=== PATIENT | male | born 1950 | race Caucasian/White ===

== ENCOUNTER 2017-06-06 08:49 | Emergency (ER) | payer MEDICARE ==
[~2017-06-06] VITALS: Ht 182.9 cm; Wt 77.1 kg
[~2017-06-06 08:49] MED LIST: ALBU90OI INH; CLIN300 PO; CLON.1 PO; CRUTCH3 USE; Cardizem CD 12120 MG PO; DILT120ERA PO; IBUP600 PO; LOSA25 PO; OXYACE5T PO; PRED20 PO; Prednisone20 MG PO; XARELTO20 MG PO; Zithromax250 MG PO
[2017-06-06] MEDS ORDERED: Norco 5-325 Ta1 EACH PO (10:28)
== END 2017-06-06 10:36 | disposition home or self-care (01) ==
LOC: ER 08:49
DX: M65.262 Calcific tendinitis, left lower leg (principal); F17.200 Nicotine dependence, unspecified, uncomplicated; Z79.899 Other long term (current) drug therapy
CPT/HCPCS: 29505; 73564; 99283

== ENCOUNTER 2017-07-12 11:11 | Emergency (ER) | payer MEDICARE ==
[~2017-07-12] VITALS: Ht 180.3 cm; Wt 77.1 kg
[~2017-07-12 11:11] MED LIST changes: +Norco 5-325 Ta1 EACH PO
[2017-07-12] MEDS ORDERED: LOSA50 PO (11:48)
[2017-07-12] MEDS ORDERED: HYDR-86 PO (11:51)
[2017-07-12] MEDS ORDERED: Ultram50 MG PO (12:01)
== END 2017-07-12 12:06 | disposition home or self-care (01) ==
LOC: ER 11:11
DX: M11.262 Other chondrocalcinosis, left knee (principal); M11.261 Other chondrocalcinosis, right knee; F17.210 Nicotine dependence, cigarettes, uncomplicated; Z79.899 Other long term (current) drug therapy
CPT/HCPCS: 73562-LT; 99283

== ENCOUNTER 2017-09-15 09:23 | Emergency (ER) | payer MEDICARE ==
[~2017-09-15] VITALS: Ht 182.9 cm; Wt 72.6 kg
[~2017-09-15 09:23] MED LIST changes: +HYDR-86 PO; +LOSA50 PO; +Ultram50 MG PO
[2017-09-15] MEDS ORDERED: TRAM50 PO (10:14)
== END 2017-09-15 10:19 | disposition home or self-care (01) ==
LOC: ER 09:23
DX: M25.561 Pain in right knee (principal); Z79.899 Other long term (current) drug therapy; F17.210 Nicotine dependence, cigarettes, uncomplicated
CPT/HCPCS: 73562-RT; 99283

== ENCOUNTER → 2017-09-17 | Outpatient (CLI) | payer MEDICARE ==
[~2017-09-17] MED LIST changes: +TRAM50 PO
[2017-09-17 10:36] LABS: Body Fluid Crystals NEG (NEGATIVE)
[2017-09-17 11:27] LABS: WBC Count, Synovial Fluid 9660 /mm3 (0-180)
[2017-09-17 11:52] LABS: Appearance, Synovial Fluid Hazy (Clear); Color, Synovial Fluid Yellow (None-P Yel); Lymphs, Synovial Fluid 1 % (0-15); Monocytes/Macrophages, Synovia 14 % (0-65); Neutrophils, Synovial Fluid 85 % (0-24)
[2017-09-17 12:16] LABS: RBC Count, Synovial Fluid 320 /mm3 (0-0)
[2017-09-17 12:41] LABS: BASOPHILS ABSOLUTE AUTO 0.05 K/mm3 (0.00-0.23); BASOPHILS PERCENT AUTO 1 % (0-2); EOSINOPHILS ABSOLUTE AUTO 0.09 K/mm3 (0.00-0.68); EOSINOPHILS PERCENT AUTO 1 % (0-6); Hematocrit 41.3 % (37.0-53.0); Hemoglobin 13.4 g/dL (13.5-17.5); IMMATURE GRAN ABSOLUTE AUTO 0.02 K/mm3 (0.00-0.10); IMMATURE GRAN PERCENT AUTO 0 % (0-1); LYMPHOCYTES ABSOLUTE AUTO 1.68 K/mm3 (0.84-5.20); LYMPHOCYTES PERCENT AUTO 24 % (21-46); MONOCYTES ABSOLUTE AUTO 0.64 K/mm3 (0.16-1.47); MONOCYTES PERCENT AUTO 9 % (4-13); Mean Corpuscular HGB 29.3 pg (26.0-34.0); Mean Corpuscular HGB Conc 32.4 g/dL (31.5-36.5); Mean Corpuscular Volume 90 fL (80-100); Mean Platelet Volume 9.9 fL (9.1-12.4); NEUTROPHILS ABSOLUTE AUTO 4.49 K/mm3 (1.96-9.15); NEUTROPHILS PERCENT AUTO 64 % (41-73); Platelet Count 288 K/mm3 (150-400); RDW Coefficient Variation 16.3 % (11.7-14.2); RDW Standard Deviation 53.9 fL (35.1-46.3); Red Blood Cell Count 4.58 M/mm3 (4.30-5.90); White Blood Cell Count 6.97 K/mm3 (4.00-11.30)
== END ==
LOC: LAB SHORT 09:31 → LAB 09:31
PROVIDERS: Family Medicine
DX: M25.461 Effusion, right knee (principal)
CPT/HCPCS: 36415; 85025; 85651; 86140; 89051; 89060

== ENCOUNTER 2018-05-01 09:00 | Emergency (ER) | payer MEDICARE ==
[~2018-05-01] VITALS: Ht 180.3 cm; Wt 79.4 kg
[2018-05-01] MEDS ORDERED: Percocet 5-3251 EACH PO (10:24)
== END 2018-05-01 11:00 | disposition home or self-care (01) ==
LOC: ER 09:00
DX: S46.911A Strain of unspecified muscle, fascia and tendon at shoulder and upper arm level, right arm, initial encounter (principal); S66.812A Strain of other specified muscles, fascia and tendons at wrist and hand level, left hand, initial encounter; I10 Essential (primary) hypertension; I48.91 Unspecified atrial fibrillation; F17.210 Nicotine dependence, cigarettes, uncomplicated; Z79.899 Other long term (current) drug therapy; Z79.01 Long term (current) use of anticoagulants
CPT/HCPCS: 73070; 99283-25

== ENCOUNTER 2018-05-22 08:42 | Emergency (ER) | payer MEDICARE ==
[~2018-05-22] VITALS: Ht 180.3 cm; Wt 77.1 kg
[~2018-05-22 08:42] MED LIST changes: +Percocet 5-3251 EACH PO
== END 2018-05-22 09:32 | disposition home or self-care (01) ==
LOC: ER 08:42
DX: G89.29 Other chronic pain (principal); M25.561 Pain in right knee; Z79.899 Other long term (current) drug therapy; Z79.891 Long term (current) use of opiate analgesic; I10 Essential (primary) hypertension; F17.210 Nicotine dependence, cigarettes, uncomplicated
CPT/HCPCS: 99283

== ENCOUNTER 2019-05-14 05:49 | Emergency (ER) | payer MEDICARE ==
[~2019-05-14] VITALS: Ht 180.3 cm; Wt 81.7 kg
[~2019-05-14 05:49] MED LIST changes: +AZIT250 PO; +CLONIDINE HCL0.1 MG PO; +PRED10 PO
[2019-05-14 07:39] LABS: BASOPHILS ABSOLUTE AUTO 0.05 K/mm3 (0.00-0.23); BASOPHILS PERCENT AUTO 1 % (0-2); EOSINOPHILS ABSOLUTE AUTO 0.03 K/mm3 (0.00-0.68); EOSINOPHILS PERCENT AUTO 0 % (0-6); Hematocrit 41.5 % (37.0-53.0); Hemoglobin 13.4 g/dL (13.5-17.5); IMMATURE GRAN ABSOLUTE AUTO 0.05 K/mm3 (0.00-0.10); IMMATURE GRAN PERCENT AUTO 1 % (0-1); LYMPHOCYTES ABSOLUTE AUTO 1.97 K/mm3 (0.84-5.20); LYMPHOCYTES PERCENT AUTO 18 % (21-46); MONOCYTES ABSOLUTE AUTO 1.11 K/mm3 (0.16-1.47); MONOCYTES PERCENT AUTO 10 % (4-13); Mean Corpuscular HGB 28.2 pg (26.0-34.0); Mean Corpuscular HGB Conc 32.3 g/dL (31.5-36.5); Mean Corpuscular Volume 87 fL (80-100); NEUTROPHILS ABSOLUTE AUTO 7.78 K/mm3 (1.96-9.15); NEUTROPHILS PERCENT AUTO 71 % (41-73); Platelet Count 248 K/mm3 (150-400); RDW Coefficient Variation 15.5 % (11.7-14.2); RDW Standard Deviation 49.8 fL (35.1-46.3); Red Blood Cell Count 4.75 M/mm3 (4.30-5.90); White Blood Cell Count 10.99 K/mm3 (4.00-11.30)
[2019-05-14 07:59] LABS: Alanine Aminotransfer (ALT/SGP 20 U/L (12-78); Albumin, Blood 3.2 g/dL (3.4-5.0); Albumin/Globulin Ratio 0.8 (0.8-1.8); Alk Phos 61 U/L (50-136); Anion Gap 8 mmol/L (6-16); Aspartate Aminotrans (AST/SGOT 21 U/L (12-37); Bilirubin, Total 1.1 mg/dL (0.1-1.0); Blood Urea Nitrogen 28 mg/dL (8-24); Bun/Creatinine Ratio 23.5 (12.0-20.0); CO2, Blood 23 mmol/L (21-32); Calcium, Blood 8.6 mg/dL (8.5-10.1); Chloride, Blood 104 mmol/L (98-108); Creatinine, Blood 1.19 mg/dL (0.60-1.20); Globulin, Blood 4.2 g/dL (2.2-4.0); Glomerular Filtration Rate >60 (60-); Glucose, Blood 87 mg/dL (70-99); Potassium, Blood 4.2 mmol/L (3.5-5.5); Sodium, Blood 135 mmol/L (136-145); Total Protein, Blood 7.4 g/dL (6.4-8.2); Troponin I <0.015 ng/mL (0.000-0.040)
[2019-05-14] MEDS ORDERED: HYDR1TAB94 PO (09:12)
== END 2019-05-14 09:47 | disposition home or self-care (01) ==
LOC: ER 05:49
PROVIDERS: Emergency Medicine
DX: M47.812 Spondylosis without myelopathy or radiculopathy, cervical region (principal); M79.602 Pain in left arm; M65.9 Synovitis and tenosynovitis, unspecified; I48.91 Unspecified atrial fibrillation; J44.9 Chronic obstructive pulmonary disease, unspecified; F17.210 Nicotine dependence, cigarettes, uncomplicated; I10 Essential (primary) hypertension; Z86.73 Personal history of transient ischemic attack (TIA), and cerebral infarction without residual deficits; Z79.899 Other long term (current) drug therapy
CPT/HCPCS: 36415; 71046; 72125; 80053; 84484; 85025; 93005; 93010; 99284-25

== ENCOUNTER 2019-07-30 07:48 | Inpatient (IN) | payer MEDICARE ==
[~2019-07-30] VITALS: Ht 180.3 cm; Wt 77.1 kg
[~2019-07-30 07:48] MED LIST changes: +HYDR1TAB94 PO
[2019-07-30 08:52] LABS: BASOPHILS ABSOLUTE AUTO 0.04 K/mm3 (0.00-0.23); BASOPHILS PERCENT AUTO 1 % (0-2); EOSINOPHILS ABSOLUTE AUTO 0.02 K/mm3 (0.00-0.68); EOSINOPHILS PERCENT AUTO 0 % (0-6); Hematocrit 40.2 % (37.0-53.0); Hemoglobin 12.9 g/dL (13.5-17.5); IMMATURE GRAN ABSOLUTE AUTO 0.02 K/mm3 (0.00-0.10); IMMATURE GRAN PERCENT AUTO 0 % (0-1); LYMPHOCYTES ABSOLUTE AUTO 0.82 K/mm3 (0.84-5.20); LYMPHOCYTES PERCENT AUTO 15 % (21-46); MONOCYTES ABSOLUTE AUTO 0.55 K/mm3 (0.16-1.47); MONOCYTES PERCENT AUTO 10 % (4-13); Mean Corpuscular HGB 28.5 pg (26.0-34.0); Mean Corpuscular HGB Conc 32.1 g/dL (31.5-36.5); Mean Corpuscular Volume 89 fL (80-100); Mean Platelet Volume 9.6 fL (9.1-12.4); NEUTROPHILS ABSOLUTE AUTO 4.13 K/mm3 (1.96-9.15); NEUTROPHILS PERCENT AUTO 74 % (41-73); Platelet Count 274 K/mm3 (150-400); RDW Coefficient Variation 16.9 % (11.7-14.2); RDW Standard Deviation 54.7 fL (35.1-46.3); Red Blood Cell Count 4.53 M/mm3 (4.30-5.90); White Blood Cell Count 5.58 K/mm3 (4.00-11.30)
[2019-07-30 09:17] LABS: Alanine Aminotransfer (ALT/SGP 24 U/L (12-78); Albumin, Blood 3.2 g/dL (3.4-5.0); Albumin/Globulin Ratio 0.7 (0.8-1.8); Alk Phos 61 U/L (50-136); Anion Gap 6 mmol/L (6-16); Aspartate Aminotrans (AST/SGOT 29 U/L (12-37); Bilirubin, Total 0.4 mg/dL (0.1-1.0); Blood Urea Nitrogen 25 mg/dL (8-24); Bun/Creatinine Ratio 27.5 (12.0-20.0); CO2, Blood 24 mmol/L (21-32); Calcium, Blood 8.6 mg/dL (8.5-10.1); Chloride, Blood 107 mmol/L (98-108); Creatinine, Blood 0.91 mg/dL (0.60-1.20); Globulin, Blood 4.4 g/dL (2.2-4.0); Glomerular Filtration Rate >60 (60-); Glucose, Blood 90 mg/dL (70-99); Potassium, Blood 3.6 mmol/L (3.5-5.5); Sodium, Blood 137 mmol/L (136-145); Total Protein, Blood 7.6 g/dL (6.4-8.2)
[2019-07-30] MEDS ORDERED: EDARBI80 MG PO (09:33)
[2019-07-30] MEDS ORDERED: Diltiazem ER120 M2 PO (09:33)
[2019-07-30] MEDS ORDERED: GABA100 PO (09:34)
[2019-07-30 11:08] LABS: Adenovirus Not Detected (NOT DETECT); Bordetella pertussis Not Detected (NOT DETECT); Chlamydophila pneumoniae Not Detected (NOT DETECT); Coronavirus 229E Not Detected (NOT DETECT); Coronavirus HKU1 Not Detected (NOT DETECT); Coronavirus NL63 Not Detected (NOT DETECT); Coronavirus OC43 Not Detected (NOT DETECT); Human Metapneumovirus Detected (NOT DETECT); Human Rhinovirus/Enterovirus Not Detected (NOT DETECT); Influenza A/2009-H1 Not Detected (NOT DETECT); Influenza A/H1 Not Detected (NOT DETECT); Influenza A/H3 Not Detected (NOT DETECT); Influenza B Not Detected (NOT DETECT); Mycoplasma pneumoniae Not Detected (NOT DETECT); Parainfluenza Virus 1 Not Detected (NOT DETECT); Parainfluenza Virus 2 Not Detected (NOT DETECT); Parainfluenza Virus 3 Not Detected (NOT DETECT); Parainfluenza Virus 4 Not Detected (NOT DETECT); Respiratory Syncytial Virus Not Detected (NOT DETECT)
--- NOTE | 2019-07-30 13:32 | NUR ---
PT ARRIVED TO UNIT AT APROX 1330. PT SOB W/EXERTION, O2 SAT 93% ON 2L NC.
--- NOTE | 2019-07-30 16:35 | NUR ---
DISCUSSION WITH PT AND R/T WHETHER PT TOOK ALL HIS MEDS FOR TODAY; PT REP TAKING ALL OWN MEDS FOR TODAY INCLUDING XARELTO WHILE IN ROOM 211. EDUCATED PT AND THAT WE HAVE ALL MEDS ON [facility] AND WILL DISPENSE MEDS TO PT WHILE IN HOSPITAL AND REQ THAT TAKE PT'S MEDS HOME. PT AND AGREED, REP UNDERSTOOD THEY SHOULD NOT TAKE OWN MEDS WHILE IN HOSPITAL.
[2019-07-31 05:09] LABS: BASOPHILS ABSOLUTE AUTO 0.01 K/mm3 (0.00-0.23); BASOPHILS PERCENT AUTO 0 % (0-2); EOSINOPHILS PERCENT AUTO 0 % (0-6); Hematocrit 37.1 % (37.0-53.0); IMMATURE GRAN ABSOLUTE AUTO 0.03 K/mm3 (0.00-0.10); IMMATURE GRAN PERCENT AUTO 0 % (0-1); LYMPHOCYTES ABSOLUTE AUTO 0.53 K/mm3 (0.84-5.20); LYMPHOCYTES PERCENT AUTO 8 % (21-46); MONOCYTES ABSOLUTE AUTO 0.23 K/mm3 (0.16-1.47); MONOCYTES PERCENT AUTO 3 % (4-13); Mean Corpuscular HGB 28.6 pg (26.0-34.0); Mean Corpuscular HGB Conc 32.3 g/dL (31.5-36.5); Mean Corpuscular Volume 88 fL (80-100); Mean Platelet Volume 9.6 fL (9.1-12.4); NEUTROPHILS PERCENT AUTO 88 % (41-73); Platelet Count 260 K/mm3 (150-400); RDW Coefficient Variation 16.5 % (11.7-14.2); RDW Standard Deviation 53.4 fL (35.1-46.3)
[2019-07-31 05:35] LABS: Magnesium, Blood 1.8 mg/dL (1.6-2.4)
[2019-07-31 05:38] LABS: Alanine Aminotransfer (ALT/SGP 24 U/L (12-78); Albumin, Blood 2.7 g/dL (3.4-5.0); Albumin/Globulin Ratio 0.7 (0.8-1.8); Alk Phos 52 U/L (50-136); Anion Gap 6 mmol/L (6-16); Aspartate Aminotrans (AST/SGOT 22 U/L (12-37); Bilirubin, Total 0.3 mg/dL (0.1-1.0); Blood Urea Nitrogen 19 mg/dL (8-24); Bun/Creatinine Ratio 24.7 (12.0-20.0); CO2, Blood 25 mmol/L (21-32); Calcium, Blood 8.4 mg/dL (8.5-10.1); Chloride, Blood 110 mmol/L (98-108); Creatinine, Blood 0.77 mg/dL (0.60-1.20); Globulin, Blood 3.9 g/dL (2.2-4.0); Glomerular Filtration Rate >60 (60-); Glucose, Blood 155 mg/dL (70-99); Potassium, Blood 3.4 mmol/L (3.5-5.5); Sodium, Blood 141 mmol/L (136-145); Total Protein, Blood 6.6 g/dL (6.4-8.2)
--- NOTE | 2019-07-31 05:52 | NUR ---
SHIFT SUMMARY: JERRY IS A&OX4. O2 @ 2 LPM VIA NC MAINTAINING SATS ABOVE 90%. HE DENIES ANY PAIN. HE IS INDEPENDENT IN THE ROOM. HE IS TOLERATING PO INTAKE WELL. HE DENIES ANY CHEST PAIN OR SHORTNESS OF BREATH. HE DOES HAVE AN INTERMITTENT COUGH WHICH HE REPORTS IS INTERMITTENTLY PRODUCTIVE OF SMALL AMOUNTS OF FROTHY WHITE SPUTUM. TELE IN PLACE. HE IS ABLE TO MAKE HIS NEEDS KNOWN. HE IS LYING IN BED WITH HIS CALL LIGHT IN REACH. WILL REPORT TO DAY SHIFT RN.
--- NOTE | 2019-07-31 14:52 | NUR ---
AMA AFTER PT'S HR INCREASED WITH RT MD MAKAYLA CALLED AND POST PONED DC AND WANTED IVF INFUSING. WHEN DISCUSSING THIS WITH PT, HE REFUSED AND WANTED TO GO AMA. WAS VERY NICE AND LISTENED TO ME EXPLAIN RISKS OF LEAVING AGAINST MEDICAL ADVICE. STATES HE UNDERSTANDS. STATES HE HATES HOSPITALS AND WILL BE OKAY. TALKED WITH , IN ROOM. HAS F/U W/ PCP ON WEDNESDAY. ESCORTED OUT VIA W/C.
== END 2019-07-31 14:46 | disposition left against medical advice (07) | DRG 871 ==
LOC: ER 07:48 → MEDS 13:06 → SURS 13:20
PROVIDERS: Nurse Practitioner Acute Care; Physician Assistant; ADMIT Internal Medicine
DX: A41.89 Other specified sepsis (principal); J96.01 Acute respiratory failure with hypoxia; J44.1 Chronic obstructive pulmonary disease with (acute) exacerbation; B97.81 Human metapneumovirus as the cause of diseases classified elsewhere; I48.91 Unspecified atrial fibrillation; I10 Essential (primary) hypertension; F17.210 Nicotine dependence, cigarettes, uncomplicated; Z86.73 Personal history of transient ischemic attack (TIA), and cerebral infarction without residual deficits; Z53.29 Procedure and treatment not carried out because of patient's decision for other reasons; Z79.01 Long term (current) use of anticoagulants
CPT/HCPCS: 0099U; 36415; 71045; 71250; 80053; 83605; 83735; 85025; 87040; 93005; 93010; 94640; 94760; 94761; 96361; 96365; 96375; 99285-25; J0456; J2930; J7050; J7120; J7512

== ENCOUNTER 2019-08-02 09:56 | Inpatient (IN) | payer MEDICARE, OTHER ==
[~2019-08-02] VITALS: Ht 180.3 cm; Wt 66.5 kg
[~2019-08-02 09:56] MED LIST changes: +Diltiazem ER120 M2 PO; +EDARBI80 MG PO; +GABA100 PO
[2019-08-02 10:26] LABS: PCO2 Arterial 37.2 mmHg (35-45); PO2 Arterial 84.5 mmHg (80-100); pH Blood Arterial 7.44 (7.35-7.45)
[2019-08-02 10:46] LABS: Alanine Aminotransfer (ALT/SGP 81 U/L (12-78); Albumin, Blood 3.2 g/dL (3.4-5.0); Albumin/Globulin Ratio 0.8 (0.8-1.8); Alk Phos 59 U/L (50-136); Anion Gap 5 mmol/L (6-16); Aspartate Aminotrans (AST/SGOT 73 U/L (12-37); Bilirubin, Total 0.5 mg/dL (0.1-1.0); Blood Urea Nitrogen 19 mg/dL (8-24); Bun/Creatinine Ratio 24.1 (12.0-20.0); CO2, Blood 28 mmol/L (21-32); Calcium, Blood 8.5 mg/dL (8.5-10.1); Chloride, Blood 110 mmol/L (98-108); Creatinine, Blood 0.79 mg/dL (0.60-1.20); Globulin, Blood 4.2 g/dL (2.2-4.0); Glomerular Filtration Rate >60 (60-); Glucose, Blood 89 mg/dL (70-99); Potassium, Blood 3.3 mmol/L (3.5-5.5); Sodium, Blood 143 mmol/L (136-145); Total Protein, Blood 7.4 g/dL (6.4-8.2); Troponin I <0.015 ng/mL (0.000-0.040)
[2019-08-02 11:53] LABS: Hematocrit 35.8 % (37.0-53.0); Hemoglobin 11.5 g/dL (13.5-17.5); Mean Corpuscular HGB 28.7 pg (26.0-34.0); Mean Corpuscular HGB Conc 32.1 g/dL (31.5-36.5); Mean Corpuscular Volume 89 fL (80-100); Mean Platelet Volume 10.2 fL (9.1-12.4); Platelet Count 207 K/mm3 (150-400); RDW Coefficient Variation 16.8 % (11.7-14.2); Red Blood Cell Count 4.01 M/mm3 (4.30-5.90); White Blood Cell Count 7.94 K/mm3 (4.00-11.30)
[2019-08-02] MEDS ORDERED: ALBU90OI INH (12:22)
[2019-08-02 12:23] LABS: BASOPHILS PERCENT MAN 0 % (0-2); EOSINOPHILS PERCENT MAN 0 % (0-6); LYMPHOCYTES % ATYPICAL MANUAL 3 % (0-0); LYMPHOCYTES ABSOLUTE MAN 1.34 K/mm3 (0.84-5.20); LYMPHOCYTES PERCENT MAN 14 % (21-46); MONOCYTES ABSOLUTE MAN 0.47 K/mm3 (0.16-1.47); MONOCYTES PERCENT MAN 6 % (4-13); NEUTROPHILS ABSOLUTE MAN 6.11 K/mm3 (1.96-9.15); SEG NEUTROPHILS PERCENT MAN 77 % (41-73); TOTAL CELLS COUNTED 100
--- NOTE | 2019-08-02 16:35 | NUR ---
Patient arrived via gurney from [facility] post report from Phoebe DIAZ. Patient arrived supine and being bagged by RT. He was a 4 person slide transfer and was being combative but not alert. He responded to painful stimuli only and CANO. They hooked him up to ventilator 8.0 ET and 24 [address] teeth [address] Dr Machado made final adjustments to AC 12, TV 420, FiO2 40% and PEEP 5.0 and he sats low 90%'s. I hooked Propofol back up at 40mcg/kg/hr and he started to calm down in RAC IC Dressing intact and site WNL's. He temp livingston draining to gravity yellow urine. His pressuress started to come down and he needed other IV mesds that may cause decrease in systolic so Dr Machado wanted line and placed PICC in GISSEL and now all meds infusing. I started Levophed at 5mcg/min for systolics in the 70's and currently 117. Patient is in Isolation for rule out Covid-19 and he is also in bilateral soft wrist restraints as he is pulling at lines. Going back in room to start new meds that were ordered.
[2019-08-02 17:10] LABS: PCO2 Arterial 37.4 mmHg (35-45); pH Blood Arterial 7.42 (7.35-7.45)
--- NOTE | 2019-08-02 18:45 | NUR ---
No changes in vent settings and are AC12, TV 420, FiO2 40%, PEEP 5.0 and sats mid to upper 90%'s. Levophed remains at 5 mcg/min. Propofol at 40mcg/kg/hr, LR at 75ml/hr and Potassium at 50ml/hr. He has PICC in GISSEL and dressing change tomorrow. came by and was able to admit. Discussed patients condition and all she was concerned about was us feeding him. I explained he is on close isolation and her mask is not sufficient and she stated she will still give kiss before leaving. He has been calm and intermitent coughing over vent.
--- NOTE | 2019-08-02 22:00 | NUR ---
ASSUMPTION OF CARE ASSUMED CARE OF PT @ 1900. PT INTUBATED AND SEDATED, WITHDRAWS FROM PAINFUL STIMULI, VENT SET TO AC 12/420/5/40%, O2 SATURATIONS>95%, MINIMAL THIN WHITE SECRETIONS FROM ETT. MONITOR SHOWS AFIB WITH HR 70'S-90'S, BP MAPS>65 ON LEVO @ 5, SEE FLOWSHEET FOR GTT RATES. PT AFEBRILE, COOL LOWER EXT, SOCKS AND BLANKETS APPLIED. BOWEL TONES HYPOACTIVE, OG TUBE IN PLACE, CLAMPED. MITCHELL IN PLACE DRAINING YELLOW URINE. RESTRAINTS SWB IN PLACE TO PREVENT SELF EXTUBATION.
[2019-08-03 02:58] LABS: Source, Urine Catheter
[2019-08-03 03:00] LABS: Bilirubin, Urine Neg (Neg); Blood, Urine 5+ (Neg); Glucose Qualitative, Urine Neg (Neg); Ketones, Urine Neg (Neg); Leukocyte Esterase, Urine 1+ (Neg); Nitrite, Urine Neg (Neg); Protein, Urine Neg (Neg); Urobilinogen, Urine NORM (Normal); pH, Urine 6.5 (5.0-8.0)
[2019-08-03 03:09] LABS: U Amphetamine Screen Not Detected; U Barbituate Screen Not Detected; U Benzodiazapine Screen DETECTED; U Buprenorphine Screen Not Detected; U Cannabinoids Screen Not Detected; U Cocaine Screen Not Detected; U Methadone Screen Not Detected; U Methamphetamine Screen Not Detected; U Opiates Screen Not Detected; U Oxycodone Screen Not Detected; U Phencyclidine Screen Not Detected; U Propoxyphene Screen Not Detected
[2019-08-03 03:10] LABS: Appearance, Urine Hazy (Clear); Color, Urine Pale Yellow (P-Yellow)
[2019-08-03 03:11] LABS: Amorphous Light (0-Heavy); Bacteria Few /hpf; Squamous Epithelial Cells Rare /hpf (Few)
[2019-08-03 04:26] LABS: BASOPHILS ABSOLUTE AUTO 0.01 K/mm3 (0.00-0.23); BASOPHILS PERCENT AUTO 0 % (0-2); EOSINOPHILS PERCENT AUTO 0 % (0-6); Hematocrit 35.5 % (37.0-53.0); Hemoglobin 11.7 g/dL (13.5-17.5); IMMATURE GRAN ABSOLUTE AUTO 0.01 K/mm3 (0.00-0.10); IMMATURE GRAN PERCENT AUTO 0 % (0-1); LYMPHOCYTES ABSOLUTE AUTO 0.59 K/mm3 (0.84-5.20); LYMPHOCYTES PERCENT AUTO 9 % (21-46); MONOCYTES PERCENT AUTO 2 % (4-13); Mean Corpuscular HGB 28.9 pg (26.0-34.0); Mean Corpuscular Volume 88 fL (80-100); Mean Platelet Volume 10.3 fL (9.1-12.4); NEUTROPHILS ABSOLUTE AUTO 5.87 K/mm3 (1.96-9.15); NEUTROPHILS PERCENT AUTO 89 % (41-73); Platelet Count 186 K/mm3 (150-400); RDW Coefficient Variation 16.4 % (11.7-14.2); RDW Standard Deviation 53.5 fL (35.1-46.3); Red Blood Cell Count 4.05 M/mm3 (4.30-5.90); White Blood Cell Count 6.58 K/mm3 (4.00-11.30)
[2019-08-03 04:44] LABS: Alanine Aminotransfer (ALT/SGP 63 U/L (12-78); Albumin, Blood 2.7 g/dL (3.4-5.0); Albumin/Globulin Ratio 0.7 (0.8-1.8); Alk Phos 53 U/L (50-136); Anion Gap 4 mmol/L (6-16); Aspartate Aminotrans (AST/SGOT 42 U/L (12-37); Bilirubin, Total 0.5 mg/dL (0.1-1.0); Blood Urea Nitrogen 15 mg/dL (8-24); Bun/Creatinine Ratio 24.2 (12.0-20.0); CO2, Blood 28 mmol/L (21-32); Calcium, Blood 8.3 mg/dL (8.5-10.1); Chloride, Blood 111 mmol/L (98-108); Creatinine, Blood 0.62 mg/dL (0.60-1.20); Globulin, Blood 3.8 g/dL (2.2-4.0); Glomerular Filtration Rate >60 (60-); Glucose, Blood 140 mg/dL (70-99); Magnesium, Blood 2.1 mg/dL (1.6-2.4); Potassium, Blood 3.7 mmol/L (3.5-5.5); Sodium, Blood 143 mmol/L (136-145); Total Protein, Blood 6.5 g/dL (6.4-8.2)
[2019-08-03 05:32] LABS: PCO2 Arterial 39.1 mmHg (35-45); PO2 Arterial 75.9 mmHg (80-100); pH Blood Arterial 7.45 (7.35-7.45)
--- NOTE | 2019-08-03 06:30 | NUR ---
SHIFT SUMMARY PT REMAINS INTUBATED AND SEDATED, GTT'S ARE FOLLOWS: LEVO ON SB, DILTIAZEM @ 5, PROPOFOL @ 40, LR @ 75ml/hr, SEE FLOWSHEET FOR TITRATIONS. VENT REMAINS ON AC 12//5/40%, PT WITH INCREASED COUGHING ON THE VENT, SOME INCREASED SECRETIONS. MONITOR SHOWS AFIB, HR 80'S-120'S, BP STABLE. PT REMAINS AFEBRILE, TEMP DECREASED TO 96.5, SOCKS AND WARM BLANKETS PROVIDED, SKIN WARM TO THE TOUCH. OG TUBE REMAINS CLAMPED, MITCHELL IN PLACE DRAINING CLEAR YELLOW URINE, SAMPLE SENT TO LAB FOR UA AND TOX SCREEN.
--- NOTE | 2019-08-03 08:30 | NUR ---
AM NOTE... ASSUMED CARE OF PT APROX 0700, PT IS ON VENT WITH SETTINGS :AC 12, TV420, PEEP PAP 28. PT IS ON PROPOFOL AT 40, PT WAS AGITATED AND WAS ATTEMPTING TO SIT UP IN THE BED, PROPOFOL WAS THEN INCREASED TO 45, PT HAS TOLERATED THIS WELL AND IS CURRENTLY RESTING AND RELAXED. PT IS IN AFIB RVR IN THE 90'S-100'S CARDIZEM GTT RUNNING AT 5MG/HR HR INCREASED TO THE 100'S-140'S CARDIZEM GTT INCREASED TO 10MG/HR. MEDICATIONS GIVEN VIA OG TUBE WITH 50ML FLUSH. ORAL CARE DONE AT THIS TIME WELL. SBP ON THE SOFT SIDE, MONITORING CLOSELY, HR IRREGULAR. L/S COARSE T/O. BT PRESENT AND HYPOACTIVE, ABD SOFT. NO SKIN ISSUES NOTED AT THIS TIME, MITCHELL IS PATENT AND DRAINING YELLOW URINE TO GRAVITY, STAT LOCK IN PLACE. PICC LINE INTACT. RIGHT PIV WNL. LEFT PIV WAS D/C'D.
--- NOTE | 2019-08-03 12:34 | NUR ---
PT'S HERE-UPDATED. PT HYPOTENSIVE-LEVOPHED RESTARTED TITRATED UP TO 4 MCG/MIN FOR BP SUPPORT. CARDIZEM GTT AT 10 CC/HR-AFIB WIT RVR RATE 100-150'S. NOTIFIED DR. LOCK, ORDERS TO START AMIODARONE GTT. PROPOFOL GTT DECREASED TO 35 MCG/KG/MIN BUT COUGHING, AGITATED, INCREASED TO 40 MCG/KG/MIN
--- NOTE | 2019-08-03 16:00 | NUR ---
PT UPDATE... VENT FIO2 WAS DROPPED FROM 45 TO 40 PER RT, PT HAS TOLERATED THIS WELL WITH O2 SATS >90% AT THIS TIME.
--- NOTE | 2019-08-03 18:06 | NUR ---
SHIFT SUMMARY.... LEVOPHED WAS STOPPED AT 1730 WITH SBP IN THE 120'S. PT IS STILL IN AFIB IN THE 100'S-120'S WHICH INCREASES TO THE 140'S-150'S WITH ANY ACTIVITY DONE TO THE PT. CARDIZEM GTT RUNNING AT 5MG/HR, AMIODERONE GTT RUNNING PER ORDRES. TUBE FEED WAS STARTED TODAY VIA OG TUBE, PT HAS TOLERATED THIS WELL WITH 20MLS OF RESIDUAL. CURRENT VENT SETTINGS: AC 12, TV 420 PEEP 5 FIO2 40%. O2 SATS HAVE BEEN STABLE >90% T/O SHIFT. PT'S WAS AT THE BEDSIDE APROX AN HOUR TODAY, MULTIPLE QUESTIONS ABOUT PT'S PLAN OF CARE WERE ANSWERED. MITCHELL IS PATENT AND DRAINING YELLOW URINE TO GRAVITY. WILL CONTINUE TO MONITOR UNTIL REPORT IS GIVEN TO ONCOMING RN.
--- NOTE | 2019-08-03 18:24 | NUR ---
Per admit trigger, I attmepted to meet with Mr. Garber to offer information/education on ACP. He is on vent and sedated. He is also in isolation. I left information packet with RN to present to family. bacteriologist food services will remain available.
--- NOTE | 2019-08-03 18:36 | NUR ---
HYPOTENSIVE-SEDATED. DECREASED PROPOFOL TO 35 MCG/KG/MIN AND LEVOPHED RESTARTED. TOELRATING VENT
--- NOTE | 2019-08-03 22:12 | NUR ---
ASSUMPTION OF CARE ASSUMED CARE OF PT @ 1900, PT INTUBATED AND SEDATED, RESPONDS TO PAINFUL STIMULI, DOES NOT FOLLOW DIRECTIONS. MONITOR SHOWS AFIB WITH HR 100-130'S WITH INCREASES TO 150'S WITH NURSING CARE AND REPOSITIONING, SLOW TO RECOVER. BP MAPS> 65, GTT'S FOLLOWS: PROPOFOL 35, AMIO 1.0, LEVOPHED 2, LR 75ml/hr, CARDIZEM ON SB (SEE FLOWSHEET FOR TITRATIONS) OG IN PLACE WITH TF @ 20ml/hr, GOAL RATE 40ml/hr. MITCHELL IN PLACE DRAINING YELLOW URINE. SKIN IS WARM TO THE TOUCH, PT WITH GROSS MOVEMENT OF ALL EXTREMETIES. PT BECOMES VERY AGITATED WITH NURING CARE, PULLING AT RESTRAINTS, LIFTING HEAD OFF THE BED, COUGHING THE VENT. PROPOFOL INCREASED. CALL PLACED TO DR LOCK REGARDING PTS HR SUSTAINED IN TINY 130'S-140'S, BP SOFT BUT MAPS>65 WITH LEVO ON SB. ORDER FOR 500ml NS BOLUS, THEN TITRATE CARDIZEM AND LEVOPHED NEEDED TO MAINTAIN MAPS>65 AND HR<120.
[2019-08-04 04:26] LABS: BASOPHILS PERCENT AUTO 0 % (0-2); EOSINOPHILS PERCENT AUTO 0 % (0-6); Hematocrit 33.2 % (37.0-53.0); Hemoglobin 10.9 g/dL (13.5-17.5); IMMATURE GRAN ABSOLUTE AUTO 0.03 K/mm3 (0.00-0.10); IMMATURE GRAN PERCENT AUTO 0 % (0-1); LYMPHOCYTES ABSOLUTE AUTO 0.53 K/mm3 (0.84-5.20); LYMPHOCYTES PERCENT AUTO 5 % (21-46); MONOCYTES ABSOLUTE AUTO 0.26 K/mm3 (0.16-1.47); MONOCYTES PERCENT AUTO 3 % (4-13); Mean Corpuscular HGB 28.6 pg (26.0-34.0); Mean Corpuscular HGB Conc 32.8 g/dL (31.5-36.5); Mean Corpuscular Volume 87 fL (80-100); Mean Platelet Volume 10.8 fL (9.1-12.4); NEUTROPHILS ABSOLUTE AUTO 9.33 K/mm3 (1.96-9.15); NEUTROPHILS PERCENT AUTO 92 % (41-73); Platelet Count 190 K/mm3 (150-400); RDW Coefficient Variation 16.9 % (11.7-14.2); RDW Standard Deviation 54.1 fL (35.1-46.3); Red Blood Cell Count 3.81 M/mm3 (4.30-5.90); White Blood Cell Count 10.15 K/mm3 (4.00-11.30)
[2019-08-04 04:42] LABS: Anion Gap 2 mmol/L (6-16); Blood Urea Nitrogen 17 mg/dL (8-24); Bun/Creatinine Ratio 24.3 (12.0-20.0); CO2, Blood 29 mmol/L (21-32); Calcium, Blood 7.9 mg/dL (8.5-10.1); Chloride, Blood 114 mmol/L (98-108); Glomerular Filtration Rate >60 (60-); Glucose, Blood 159 mg/dL (70-99); Magnesium, Blood 2.1 mg/dL (1.6-2.4); Phosphorus, Blood 2.6 mg/dL (2.5-4.9); Potassium, Blood 3.3 mmol/L (3.5-5.5); Sodium, Blood 145 mmol/L (136-145)
[2019-08-04 05:46] LABS: PCO2 Arterial 38.5 mmHg (35-45); pH Blood Arterial 7.44 (7.35-7.45)
--- NOTE | 2019-08-04 06:36 | NUR ---
SHIFT SUMMARY PT REMAINS INTUBATED AND SEDATED, VENT SET TO AC 12/450/5/40%, SEDATION VACATION THIS SHIFT, PT RESPONDS TO VERBAL STIMULI, OPENS EYES, DOES NOT FOLLOW DIRECTIONS, DOES NOT ANSWER YES/NO QUESTIONS, HR INCREASED AND SUSTAINED IN 140'S-150'S, SEDATION VACATION ENDED AT THAT TIME. MONITOR SHOWS AFIB WITH HR 100-130'S, GTT'S CURRENTLY INFUSING FOLLOWS: PROPOFOL 35, DILTIAZEM 10, AMIO 0.5, LR 75, LEVO ON SB. BP STABLE. PT HYPOTENSIVE THIS SHIFT, 500ml NS BOLUS x2 PROVIDED WITH GOOD EFFECT. TF INFUSING AT GOAL RATE OF 40ml/hr, NO RESIDUALS. CBG'S STABLE. MITCHELL IN PLACE DRAINING DARK YELLOW URINE, DECREASED OUTPUT THIS SHIFT. PT HAS GROSS MOVEMENT OF ALL EXTREMETIES, NO PURPOSEFUL MOVEMENTS NOTED AT THIS TIME. CHEST XRAY COMPLETED THIS AM.
--- NOTE | 2019-08-04 11:36 | NUR ---
REASSESSMENT PT REMAINS INTUBATED AND SEDATED. VENT AC 12, TV 420, PEEP 5, FIO2 35%. LUNG SOUNDS CLEAR ON R SIDE WITH SOME INSPIRATORY WHEEZES ON L SIDE. SEDATION VACATION COMPLETED, PT FOLLOWED COMMANDS APPROPRIATELY AND DENIED PAIN WHEN ASKED. LR MIV DISCONTINUED BY MD. PT REMAINS IN AFIB, HR 100-140. AMIODARONE GTT INFUSION CONTINUING AT 0.5 MG/HR AND DILTIAZEM GTT AT 15 MG/HR. POTASSIUM REPLACED. PROPOFOL GTT INFUSING AT 40 MCG. TOLERATING TF AT GOAL RATE WITH MINIMAL RESIDUAL. BUE REMAIN IN RESTRAINTS. MAP GREATER THAN 65. WILL CONTINUE TO MONITOR.
--- NOTE | 2019-08-04 17:55 | NUR ---
SHIFT SUMMARY PT REMAINED INTUBATED AND SEDATED ENTIRE SHIFT EXCEPT FOR DURING SEDATION VACATION. HAS REMAINED IN AFIB WITH HR 100-130S. PT DILTIAZEM GIVEN THIS AFTERNOON AND IV DILTIAZEM DISCONTINUED AT 1745. AMIODARONE GTT DISCONTINUED AT 1300 TODAY. CONTINUES TO TOLERATE TF AT GOAL RATE WITH ZERO TO MINIMAL RESIDUALS. AFEBRILE DURING SHIFT. MAP GREATER THAN 65 ENTIRE SHIFT. HOB ELEVATED AND PT TURNED Q2H. POSTASSIUM REPLACED THIS AM PER IV AND PER TUBE. PROPOFOL GTT AT 50 MCG. UPDATED ON TELEPHONE TODAY. WILL GIVE BEDSIDE, HANDOFF REPORT TO NOC RN.
--- NOTE | 2019-08-05 01:19 | NUR ---
START OF SHIFT NOTE: PT REMAINS INTUBATED SEDATED ON PROPOFOL. VSS. PT WITH AFIB HR 90'S-140'S. BP STABLE. PT AFEBRILE. PROPOFOL TITRATED DOWN CURRENTLY AT 35mcg/kg/min. VENT SETTINGS A/C 12, Vt 450, PEEP 5.0, FiO2 35%. PUPILS EQUAL AND REACTIVE. PT IN ENHANCED ISO FOR R/O COVID 19.
[2019-08-05 03:43] LABS: BASOPHILS ABSOLUTE AUTO 0.01 K/mm3 (0.00-0.23); BASOPHILS PERCENT AUTO 0 % (0-2); EOSINOPHILS PERCENT AUTO 0 % (0-6); Hematocrit 35.9 % (37.0-53.0); Hemoglobin 11.6 g/dL (13.5-17.5); IMMATURE GRAN ABSOLUTE AUTO 0.11 K/mm3 (0.00-0.10); IMMATURE GRAN PERCENT AUTO 1 % (0-1); LYMPHOCYTES ABSOLUTE AUTO 0.52 K/mm3 (0.84-5.20); LYMPHOCYTES PERCENT AUTO 4 % (21-46); MONOCYTES ABSOLUTE AUTO 0.28 K/mm3 (0.16-1.47); MONOCYTES PERCENT AUTO 2 % (4-13); Mean Corpuscular HGB 28.7 pg (26.0-34.0); Mean Corpuscular HGB Conc 32.3 g/dL (31.5-36.5); Mean Corpuscular Volume 89 fL (80-100); Mean Platelet Volume 10.6 fL (9.1-12.4); NEUTROPHILS ABSOLUTE AUTO 12.49 K/mm3 (1.96-9.15); NEUTROPHILS PERCENT AUTO 93 % (41-73); Platelet Count 218 K/mm3 (150-400); RDW Coefficient Variation 17.2 % (11.7-14.2); RDW Standard Deviation 55.9 fL (35.1-46.3); Red Blood Cell Count 4.04 M/mm3 (4.30-5.90); White Blood Cell Count 13.41 K/mm3 (4.00-11.30)
[2019-08-05 03:58] LABS: Anion Gap 4 mmol/L (6-16); Blood Urea Nitrogen 29 mg/dL (8-24); Bun/Creatinine Ratio 42.2 (12.0-20.0); CO2, Blood 28 mmol/L (21-32); Calcium, Blood 8.1 mg/dL (8.5-10.1); Chloride, Blood 113 mmol/L (98-108); Creatinine, Blood 0.69 mg/dL (0.60-1.20); Glomerular Filtration Rate >60 (60-); Glucose, Blood 153 mg/dL (70-99); Potassium, Blood 4.4 mmol/L (3.5-5.5); Sodium, Blood 145 mmol/L (136-145)
--- NOTE | 2019-08-05 05:22 | NUR ---
DR. DANIEL NOTIFIED: RE: HR INCREASING T/O NOC NOW CONSISTENTLY 140'S-160'S. NEW ORDERS TO GIVE CARDIZEM PO DOSE NOW AND RESTART CARDIZEM gtt.
--- NOTE | 2019-08-05 06:41 | NUR ---
END OF SHIFT: PT REMAINS INTUBATED SEDATED WITH PROPOFOL. PROPOFOL CURRENTY AT 45mcg. PT'S HR INCREASED T/O NOC REQUIRING RESTART OF CARDIZEM gtt. BP STABLE. PT AFEBRILE.
--- NOTE | 2019-08-05 07:15 | NUR ---
Received report from Shweta DIAZ. Patient sitting up in bed talking with Dr Miles. He requested Ck and stat 0800 potassium. Patient is able to communicate his needs but not able to hold intermission coordinator conversation . He is on 3L O2 via NC and sats 90-96%. He uses urinal and goes about 200 ml's at a time. He has PICC line to GISSEL and dressing intact and site WNL's and is infusing Heparin 20.5 units/kg/hr and NS TKO. His lips are scabed and he constantly applies lip balm to them. He c/o of dry skin and will apply lotion at bath time. He is able to CANO but remains weak. He has temporary pacer to [facility] and is 100% paced 50-60's.
--- NOTE | 2019-08-05 07:30 | NUR ---
Recieved report from Xiao DIAZ. Patient intubated and sedated. He has 8.0 ET and is 24 cm at teeth. His vent setting are AC 12, TV 420, FiO2 35% and PEEP 5.0 with thats 96%. He withdrawls to oral care and pain . He awakens easily with slight reduction in his Propofol. He has PICC line to GISSEL, dressing intact and site WNL's and is infusing Propofol at 45 mcg/kg/min, NS TKO, and Diltiazem at 15 for HR 130's. He has OG infusing Vital High Protien at 45ml/hr and 30 ml water flushes Q4, no am residuals. He has 16Fr temp livingston draining to gravit yellow urine.
--- NOTE | 2019-08-05 09:30 | NUR ---
No acute changes with patient. He remains on Propofol for sedation and Diltiazem for HR 130's. He has had RT in with him several times and remains on same settings. called and awaiting results.
--- NOTE | 2019-08-05 09:30 | NUR ---
We gave bath as patient had small soft BM. Cleaned bed and changed linen and applied lotion to all areas. He remains on Heparin at 20.5 units/kg/hr and NS TKO. He remains 100% paced 50-60's. He continues to use urinal about 200 ml at a time for a total of 675 currently. Potassium down to 5.[address] Miles called. CBG was 67 and gave sprite with am meds. Dr Oseguera by and no new orders refer to cardiology for staus change. he has tolerated liquids well and no cough. He continues to CANO but weak. PT by and worked with him in the bed.
--- NOTE | 2019-08-05 11:37 | NUR ---
Dr Michelle by to se patient and stated we will keep intubated today, dc PO Cardizem and start Metoprolol. Only Vent change is FiO2 30% and continues to sat mid to upper 90%'s. Oral care done. Cardizem gtt stays at 15ml/hr
--- NOTE | 2019-08-05 14:16 | NUR ---
Patient continues to rest while he is sedated. Reduced Cardizem gtt to 10ml/hr for HR in the 90's and systolics 112. No vent setting changes since last note and Propofol at 45mcg/kg/min. Tube fedings remains at 40ml/hr and will be changing setup shortly. No other significant changes.
--- NOTE | 2019-08-05 16:48 | NUR ---
Changed TF out and hung new Propofol at 455 mcg/kg/min, Cardizem reduced to 5ml/hr for HR 60-80's. Oral care done and cath care. He had 700 ml urine out. Vent settings are AC 12, TV 420, FiO2 30% and PEEP 5.0 and sats 95%. systolic 127 and MAP >65. Possible extubation tomorrow. His Covid -19 test not back yet.
--- NOTE | 2019-08-05 20:44 | NUR ---
PT'S CALLED AND WAS UPDATED.
--- NOTE | 2019-08-06 01:02 | NUR ---
START OF SHIFT NOTE: PT REMAINS INTUBATED SEDATED ON PROPOFOL. VENT: A/C 12, Vt 420, PEEP 5.0, Fi02 NOW AT 40%. PT CONTINUES ON CARDIZEM gtt WHICH HAS BEEN AT 5mg/hr T/O SHIFT THUS FAR. PROPOFOL AT 45mcg T/O SHIFT. PT HAS BEEN CALM AND QUIET TOLERATING Q2' TURNS. TF AT GOAL WITH 0 RESIDUALS. MITCHELL CATHETER DRAINING TO GRAVITY OF CLEAR YELLOW URINE CURRENTLY DIURESING AFTER LASIX ADMIN. WILL CONTINUE TO MONITOR.
[2019-08-06 03:47] LABS: BASOPHILS ABSOLUTE AUTO 0.02 K/mm3 (0.00-0.23); BASOPHILS PERCENT AUTO 0 % (0-2); EOSINOPHILS PERCENT AUTO 0 % (0-6); Hematocrit 37.9 % (37.0-53.0); Hemoglobin 12.2 g/dL (13.5-17.5); IMMATURE GRAN ABSOLUTE AUTO 0.21 K/mm3 (0.00-0.10); IMMATURE GRAN PERCENT AUTO 2 % (0-1); LYMPHOCYTES PERCENT AUTO 5 % (21-46); MONOCYTES ABSOLUTE AUTO 0.52 K/mm3 (0.16-1.47); MONOCYTES PERCENT AUTO 4 % (4-13); Mean Corpuscular HGB 28.4 pg (26.0-34.0); Mean Corpuscular HGB Conc 32.2 g/dL (31.5-36.5); Mean Corpuscular Volume 88 fL (80-100); Mean Platelet Volume 10.2 fL (9.1-12.4); NEUTROPHILS ABSOLUTE AUTO 11.22 K/mm3 (1.96-9.15); NEUTROPHILS PERCENT AUTO 89 % (41-73); Platelet Count 236 K/mm3 (150-400); RDW Coefficient Variation 16.9 % (11.7-14.2); RDW Standard Deviation 55.3 fL (35.1-46.3); White Blood Cell Count 12.57 K/mm3 (4.00-11.30)
[2019-08-06 04:04] LABS: Anion Gap 2 mmol/L (6-16); Blood Urea Nitrogen 35 mg/dL (8-24); Bun/Creatinine Ratio 45.5 (12.0-20.0); CO2, Blood 33 mmol/L (21-32); Calcium, Blood 8.4 mg/dL (8.5-10.1); Chloride, Blood 109 mmol/L (98-108); Creatinine, Blood 0.77 mg/dL (0.60-1.20); Glomerular Filtration Rate >60 (60-); Glucose, Blood 132 mg/dL (70-99); Magnesium, Blood 2.1 mg/dL (1.6-2.4); Potassium, Blood 4.3 mmol/L (3.5-5.5); Sodium, Blood 144 mmol/L (136-145)
--- NOTE | 2019-08-06 04:59 | NUR ---
HR STEADILY INCREASING INTO THE 160'S, CARDIZEM gtt TITRATED TO 10mg/hr.
--- NOTE | 2019-08-06 06:25 | NUR ---
UPDATE: CARDIZEM GTT INCREASED TO 15mg/hr FOR APPRX ONE HOUR NOW CURRENTLY BACK DOWN TO 10mg/hr WITH HR 96-117.
--- NOTE | 2019-08-06 07:30 | NUR ---
Received report from Xiao DIAZ. patient supine in bed on left side with HOB at 30 degrees. He is intubated and sedated. His vent setting are AC 12, TV 420, FiO2 30% and PEEP 5.0 and sats 97%. He withdrawls from oral care and pain and when sedationed lighted he opens eye to verbal stimuli. He is ion bilateral soft wrist restraints and removed to check skin and circulation and re-applied. He is on Isoltion to rile out Covid 19. He has 16 Fr kel Carrizales draining to gravity yellow urime. OG in place infusing Vital High Protien at 40ml/hr and 30 mlQ4v water flushes and 0 residuals this am. He has PICC line GISSEL dressing intact and site WNL's and is infusing Propofol at 45 mcg/kg/min, Cardizem at 10 ml/hr , and NS TKO.
--- NOTE | 2019-08-06 09:27 | NUR ---
TF continues at 40ml/hr, am meds through OG. no changes in gtt or vent setting. possible extubation today. No test results back asof yet for Covid-19. VSS, See EMR.
--- NOTE | 2019-08-06 12:12 | NUR ---
Patient was taken off Propofol at 1130 and extubates at 1205 and is currently on 5 L O2 via NC and sats 95%. Stopped tube feeding prior and flushed. He was able to squeeze hands and follow commands prior to extubation. HR 90-110 amd MAP >65. Called and updated her on extubation.
--- NOTE | 2019-08-06 15:45 | NUR ---
Patient has been resting. Dr Michelle was just in room checking on his as well as RT. He is very weak. He remains on 5L O2 and sats 92-93%. He is tolerating clear liquids without cough or signs of aspiration. He has wet cough that he has been try to lear by coughing. VSS, See EMR, HR90's, systolic 130 with MAP >65 a-fib and remains on Cardizem gttm that was increased back to 15ml/hr for rate control. Metoprolol increased today as well. Held phone so jessica his and him could talk.
--- NOTE | 2019-08-06 18:26 | NUR ---
Patient continues to state he wants to go home. I have made sevral attempts to call Miguelina and left messages. He has not been trying to get out of bed but very insistant on going home. Medicated earlier for BP and has now come down to 150 systolic with MAP > 65, Sats on 5L O2 via NC 85-94%. Cardizem at 15ml/hr and NS TKO. PICC line intact.
--- NOTE | 2019-08-06 20:32 | NUR ---
START OF SHIFT: REPORT FROM EDWIGE DIAZ. PT AWAKE, VSS. CARDIZEM gtt TURNED OFF WITH PT HAVING HR 69-80'S. PT SITTING UP IN BED WATCHING TV. PT ORIENTED TO SELF AND BDAY, NURSE, [facility] (BUT DIDN'T KNOW NAME OF). PT STATED WANTS TO GO HOME TOMORROW. OTHERWISE PT CALM, COOPERATIVE, AND PLEASANT. CALL LIGHT WITHIN REACH. WILL CONTINUE TO MONITOR.
--- NOTE | 2019-08-06 23:50 | NUR ---
PT TALKING TO SPOUSE ON PHONE.
--- NOTE | 2019-08-07 02:45 | NUR ---
O2 SAT MAINTAINING AT 89%-90% FOR SEVERAL MINUTES. PT SAT UP AND ENCOURAGED TO COUGH AND DEEP BREATH, CLEARD THROAT. INCREASED O2 TO 6L/NC. SAT INCREASED TO 92%. SAFETY MEASURES IN PLACE. WILL CONTINUE TO MONITOR.
--- NOTE | 2019-08-07 03:17 | NUR ---
PT AWAKES, SITTING UP IN BED. VSS. PT STATES IS COMFORTABLE BUT CAN'T SLEEP. USUALLY WAKES AT HOME AT 0400. PT WITH CALL LIGHT IN HAND. DOES NOT WANT TO WATCH TV. STATES NO NEEDS AT THIS TIME. WILL CONTINUE TO MONITOR.
[2019-08-07 04:29] LABS: BASOPHILS ABSOLUTE AUTO 0.01 K/mm3 (0.00-0.23); BASOPHILS PERCENT AUTO 0 % (0-2); EOSINOPHILS PERCENT AUTO 0 % (0-6); Hematocrit 38.3 % (37.0-53.0); Hemoglobin 12.3 g/dL (13.5-17.5); IMMATURE GRAN PERCENT AUTO 2 % (0-1); LYMPHOCYTES ABSOLUTE AUTO 1.03 K/mm3 (0.84-5.20); LYMPHOCYTES PERCENT AUTO 8 % (21-46); MONOCYTES ABSOLUTE AUTO 1.05 K/mm3 (0.16-1.47); MONOCYTES PERCENT AUTO 8 % (4-13); Mean Corpuscular HGB 28.1 pg (26.0-34.0); Mean Corpuscular HGB Conc 32.1 g/dL (31.5-36.5); Mean Corpuscular Volume 88 fL (80-100); Mean Platelet Volume 10.6 fL (9.1-12.4); NEUTROPHILS ABSOLUTE AUTO 11.12 K/mm3 (1.96-9.15); NEUTROPHILS PERCENT AUTO 83 % (41-73); Platelet Count 220 K/mm3 (150-400); RDW Coefficient Variation 16.2 % (11.7-14.2); RDW Standard Deviation 52.4 fL (35.1-46.3); Red Blood Cell Count 4.37 M/mm3 (4.30-5.90); White Blood Cell Count 13.41 K/mm3 (4.00-11.30)
[2019-08-07 04:44] LABS: Anion Gap 4 mmol/L (6-16); Blood Urea Nitrogen 36 mg/dL (8-24); Bun/Creatinine Ratio 51.2 (12.0-20.0); CO2, Blood 33 mmol/L (21-32); Calcium, Blood 8.5 mg/dL (8.5-10.1); Chloride, Blood 105 mmol/L (98-108); Glomerular Filtration Rate >60 (60-); Glucose, Blood 91 mg/dL (70-99); Potassium, Blood 4.1 mmol/L (3.5-5.5); Sodium, Blood 142 mmol/L (136-145)
--- NOTE | 2019-08-07 06:51 | NUR ---
PT UP TO CHAIR: STEPHEN MUNSON. PT UP C/ MINIMAL ASSIST TO CHAIR. PT SLIGHTLY UNSTEADY BUT TRANSFERRED TO CHAIR WITHOUT DIFFICULTY. CALL LIGHT WITHIN REACH.
--- NOTE | 2019-08-07 09:44 | NUR ---
[place] of Care: Care assumed at 0700hr. Patient sitting upright in chair. A/O to self, place, and month. Re-oriented to date and reason for admission. Patient stood/pivot to [facility] with one person assist, weak and unsteady on his feet. HR shows A-fib in low 100's, but increased to 150's-180's after standing to pivot. HR slowly decreased with rest. Patient denies pain, discomfort, SOB, or dyspnea. SpO2-92-94% ON 4L/NC. PICC line to GISSEL patent and intact, flushed with 10ml NS per port. Call light in reach, instructed to not stand up without assistance. Will continue to monitor.
--- NOTE | 2019-08-07 18:21 | NUR ---
Shift Summary: Patient slept on/off throughout the day. Continues to deny pain, discomfort, SOB, or dyspnea. VSS, SpO2-89-96% on 4L/NC. SpO2 only decreased with increased effort, i.e. stand/transfer, quickly recovers. Heart rate (A-fibb) increased with transfer to the 150's-180's with a transfer this morning. Subsequent transfer's throughout the day only increased HR to 120'-130's. Dr. Bustamante increased patient's PO Lopressor this morning from 50mg q8hr to 50mg q6hr. BP remains stable. Voided in bedside commode several times throughout shift. Urine pin tinged, but becoming more clear, patient's states pink urine is normal for him. Poor apatite today, did not wish to eat, but accepted Ensure shake and other PO fluids, tolerated without difficulty. Call light in reach, makes needs known. Will continue to monitor until report to NOC shift RN.
--- NOTE | 2019-08-07 19:00 | NUR ---
ASSUMPTION OF CARE: REPORT RECIEVED FROM JOSE ANGEL DIAZ. PATIENT ALERT AND ORIENTED, ANSWERING ALL QUESTIONS APPROPRIATLY BUT TENDS TO FORGET ANSWERS RECEIVED. PATIENT O2 SATURATION >90% ON 4L NC, SKIN C/D/I, VSS. GISSEL PICC FLUSHES EASILY, URINE IS YARY IN COLOR AND CONSISTANT QITH DAYSHIFT RN REPORT. NO COMPLAINTS AT THIS TIME.
[2019-08-08 03:51] LABS: BASOPHILS ABSOLUTE AUTO 0.02 K/mm3 (0.00-0.23); BASOPHILS PERCENT AUTO 0 % (0-2); EOSINOPHILS ABSOLUTE AUTO 0.05 K/mm3 (0.00-0.68); EOSINOPHILS PERCENT AUTO 0 % (0-6); Hematocrit 45.2 % (37.0-53.0); Hemoglobin 14.6 g/dL (13.5-17.5); IMMATURE GRAN PERCENT AUTO 2 % (0-1); LYMPHOCYTES ABSOLUTE AUTO 1.84 K/mm3 (0.84-5.20); LYMPHOCYTES PERCENT AUTO 15 % (21-46); MONOCYTES ABSOLUTE AUTO 1.13 K/mm3 (0.16-1.47); MONOCYTES PERCENT AUTO 9 % (4-13); Mean Corpuscular HGB 28.3 pg (26.0-34.0); Mean Corpuscular HGB Conc 32.3 g/dL (31.5-36.5); Mean Corpuscular Volume 88 fL (80-100); Mean Platelet Volume 10.2 fL (9.1-12.4); NEUTROPHILS ABSOLUTE AUTO 8.93 K/mm3 (1.96-9.15); NEUTROPHILS PERCENT AUTO 73 % (41-73); Platelet Count 253 K/mm3 (150-400); RDW Coefficient Variation 15.6 % (11.7-14.2); RDW Standard Deviation 50.4 fL (35.1-46.3); Red Blood Cell Count 5.16 M/mm3 (4.30-5.90); White Blood Cell Count 12.17 K/mm3 (4.00-11.30)
[2019-08-08 04:06] LABS: Anion Gap 4 mmol/L (6-16); Blood Urea Nitrogen 29 mg/dL (8-24); Bun/Creatinine Ratio 42.3 (12.0-20.0); CO2, Blood 33 mmol/L (21-32); Calcium, Blood 8.8 mg/dL (8.5-10.1); Chloride, Blood 105 mmol/L (98-108); Creatinine, Blood 0.69 mg/dL (0.60-1.20); Glomerular Filtration Rate >60 (60-); Glucose, Blood 76 mg/dL (70-99); Magnesium, Blood 2.1 mg/dL (1.6-2.4); Potassium, Blood 3.9 mmol/L (3.5-5.5); Sodium, Blood 142 mmol/L (136-145)
--- NOTE | 2019-08-08 04:44 | NUR ---
SHIFT SUMMARY: PATIENT ASKING MULTIPLE TIMES IF HE WAS GOING HOME TODAY. PATIENT HR AND BLOOD PRESSURE INCREASE WITH SITTING, BECOMES VERY SOB. LOW INTAKE, ENCOURAGED TO DRINK MORE FLUIDS. LAB VALUES IMPROVING. PATIENT IMPULSIVE WHEN HE NEEDS TO URINATE, BED ALARM ON, BED LOW AND LOCKED. CALL LIGHT WITHIN REACH, MONITORING CLOSELY.
--- NOTE | 2019-08-08 07:44 | NUR ---
Received report from Noc RN. Patient sitting up in bed and slow speech and able to communicate his needs. He states that he wants to go home and wants to know whom to talk with. Patient does not have clear understanding of his illness and when explained to him does not remember that he was intubated and stated he will get better when he is home. He is on 3L O2 via NC and 93% sats.He has PICC l ine to GISSEL dressing intact and site WNL's and has been flushed and SL'd. He uses bedside cammode with SBA when urinating. CANO but remains weak.
--- NOTE | 2019-08-08 10:48 | NUR ---
Adriano Garcia has been by to see patient and he continues to insist that he is going AMA. I have had many discussuions as well as DR Garcia spent 30 minutes in room with him. He has been instructed that he needs to be weaned form O@ before leaving. VSS See EMR. He has been up to bedside cammode with SBA. Patient id currently on phone with , as I just spoke with her and she ants us to keep him against his will and stated we are not allowed to do this. He tolerated cl liquid diet well. He has had liquid stool with water consistancy.
--- NOTE | 2019-08-08 12:13 | NUR ---
PT RECEIVED FROM ICU. HE IS ALERT AND ORIENTED X 4 JUST SLOW TO RESPOND WITH NO C/O PAIN OR DISCOMFORT. HE DENIES ANY SOB OF CHEST PAIN AND HAS A WEAK NON-PRODUCTIVE COUGH. UPON ARRIVAL TO HIS ROOM HE WAS A STAND BY ASSIST TO TRANFER TO BED AND IMMEDIATELY ASKED TO CALL HIS WHICH HE WAS ASSISTED WITH AND HE NOTIFIED HER OF HIS NEW ROOM NUMBER. PT IS ALREADY ASKING WHEN HE CAN GO HOME. PT WAS ORIENTED TO ROOM AND NURSING STAFF AND HOW TO USE THE PHONE AND CALL LIGHT. HE IS RESTING IN BED.
--- NOTE | 2019-08-08 15:48 | NUR ---
SHIFT SUMMARY PT IS A/O TO SELF, AND SITUATION AT TIMES AND IS SLOW TO RESPOND. HE HAS POOR SAFETY AWARENESS AND IS IMPULSIVE. EVEN THOUGH THE CALL LIGHT AND BED ALARM WERE EXPLAINED AND THE PT VERBALIZED AN UNDERSTANDING OF CALLING FOR HELP BEFORE TRANSFERRING HE CONTINUES TO ATTEMPT TO SELF TRANSFER AND NEEDS FREQUENT REDIRECTION. WHEN TRANSFERRING TO [facility] FOR TOILETING HE IS A STAND BY ASSIST BUT EASILY BECOMES SOB AND IS CONSIDERABLY WEAK EVEN FOR SUCH A SHORT DISTANCE. O2 SAT IS 90-92% ON 4LPM VIA N.C. PT IS RESTING IN BED AND HAS HIS CALL LIGHT AND PHONE IN REACH WATCHING TV.
--- NOTE | 2019-08-08 20:32 | NUR ---
CALLED [employer] - RE:AMA RISKS EXPLAINED TO PT. PT REFUSED TO STAY. INFORMED [employer]. INFORMED PT'S OF RISKS AND NEED FOR THEM BOTH TO SELF QUARANTINE. PT INSISTED HE NEEDED TO LEAVE AMA.
== END 2019-08-08 20:18 | disposition left against medical advice (07) | DRG 870 ==
LOC: ER 09:56 → MEDS 13:51 → ICUW 13:51 → MEDS 08-08 11:52
PROVIDERS: Emergency Medicine; Internal Medicine; Internal Medicine Critical Care Medicine; Nurse Practitioner Acute Care; ADMIT Internal Medicine
PROC: 0BH17EZ Insertion of Endotracheal Airway into Trachea, Via Natural or Artificial Opening (ICD-10-PCS; principal; 2019-08-02)
PROC: 5A1955Z Respiratory Ventilation, Greater than 96 Consecutive Hours (ICD-10-PCS; 2019-08-02)
PROC: 02HV33Z Insertion of Infusion Device into Superior Vena Cava, Percutaneous Approach (ICD-10-PCS; 2019-08-02)
DX: A41.9 Sepsis, unspecified organism (principal); J96.21 Acute and chronic respiratory failure with hypoxia; J12.3 Human metapneumovirus pneumonia; J44.1 Chronic obstructive pulmonary disease with (acute) exacerbation; J44.0 Chronic obstructive pulmonary disease with (acute) lower respiratory infection; R65.20 Severe sepsis without septic shock; E87.6 Hypokalemia; I10 Essential (primary) hypertension; F17.210 Nicotine dependence, cigarettes, uncomplicated; I48.91 Unspecified atrial fibrillation; Z86.73 Personal history of transient ischemic attack (TIA), and cerebral infarction without residual deficits; D64.9 Anemia, unspecified
CPT/HCPCS: 31500; 31720; 36569; 36600; 51702; 71045; 80048; 80053; 81001; 82330; 82803; 82947; 83605; 83735; 83880; 84100; 84145; 84484; 85025; 87040; 87070; 87086; 87186; 87205; 93005; 93010; 94002; 94003; 94640; 94644; 94664; 94667; 94760; 96365-59; 96366-59; 96368; 96375-59; 96376-59; 97110; 97162; 97166; 97530; 97535; 98960; 99291-25; C1751; C9113; J0282; J0330; J0456; J0696; J1940; J2060; J2704; J2920; J2930; J3010; J3480; J7030; J7040; J7050; J7060; J7120; U0002

== ENCOUNTER → 2022-03-06 | Outpatient (CLI) | payer MEDICARE ==
[2022-03-06 17:35] LABS: Alanine Aminotransfer (ALT/SGP 18 U/L (12-78); Albumin, Blood 3.4 g/dL (3.4-5.0); Albumin/Globulin Ratio 0.8 (0.8-1.8); Alk Phos 56 U/L (50-136); Anion Gap 5 mmol/L (6-16); Aspartate Aminotrans (AST/SGOT 19 U/L (12-37); Bilirubin, Total 0.6 mg/dL (0.1-1.0); Blood Urea Nitrogen 14 mg/dL (8-24); Bun/Creatinine Ratio 17.7 (12.0-20.0); CO2, Blood 28 mmol/L (21-32); Calcium, Blood 9.1 mg/dL (8.5-10.1); Chloride, Blood 109 mmol/L (98-108); Creatinine, Blood 0.79 mg/dL (0.60-1.20); Ferritin, Serum 122 ng/mL (26-388); Globulin, Blood 4.2 g/dL (2.2-4.0); Glomerular Filtration Rate 95 (60-); Glucose, Blood 89 mg/dL (70-99); Iron Serum 99 ug/dL (65-175); Percent Saturation 37.8 % (20.0-50.0); Potassium, Blood 4.1 mmol/L (3.5-5.5); Sodium, Blood 142 mmol/L (136-145); Total Iron Binding Capacity 262 ug/dL (250-450); Total Protein, Blood 7.6 g/dL (6.4-8.2)
== END | disposition home or self-care (01) ==
LOC: LAB SHORT 15:37 → LAB 15:37
PROVIDERS: Internal Medicine Hematology & Oncology
DX: Z12.5 Encounter for screening for malignant neoplasm of prostate (principal); D64.9 Anemia, unspecified; R63.4 Abnormal weight loss
CPT/HCPCS: 80053; 82728; 83540; 83550; 84100; G0103

== ENCOUNTER 2023-04-11 14:44 | Emergency (ER) | payer MEDICARE ==
[~2023-04-11] VITALS: Ht 180.3 cm; Wt 70.3 kg
[2023-04-11 14:50] VITALS: BP 162/119
[2023-04-11 15:10] LABS: Source, Urine Voided
[2023-04-11 15:59] LABS: Appearance, Urine Cloudy (Clear); Bilirubin, Urine Neg (Neg); Blood, Urine 5+ (Neg); Color, Urine Amber (P-Yellow); Glucose Qualitative, Urine Neg (Neg); Ketones, Urine Neg (Neg); Leukocyte Esterase, Urine 1+ (Neg); Nitrite, Urine Neg (Neg); Protein, Urine 2+ (Neg); Specific Gravity, Urine 1.015 (1.003-1.022); Urobilinogen, Urine 1+ (Normal); pH, Urine 6.5 (5.0-8.0)
[2023-04-11 16:15] LABS: Red Blood Cells, Urine TNTC /hpf (0-2)
[2023-04-11 16:17] LABS: Bacteria Few /hpf; Squamous Epithelial Cells Rare /hpf (Few)
[2023-04-11] MEDS ORDERED: CEPH500 PO (16:30)
== END 2023-04-11 16:47 | disposition home or self-care (01) ==
LOC: ER 14:44
PROVIDERS: Medical Genetics Clinical Biochemical Genetics
DX: N39.0 Urinary tract infection, site not specified (principal); I10 Essential (primary) hypertension; I48.91 Unspecified atrial fibrillation; J84.9 Interstitial pulmonary disease, unspecified; J43.9 Emphysema, unspecified; F17.210 Nicotine dependence, cigarettes, uncomplicated; Z79.01 Long term (current) use of anticoagulants; Z79.899 Other long term (current) drug therapy
CPT/HCPCS: 81001; 87086; 99283

== ENCOUNTER 2023-05-12 10:27 | Emergency (ER) | payer MEDICARE ==
[~2023-05-12] VITALS: Ht 180.3 cm; Wt 70.3 kg
[~2023-05-12 10:27] MED LIST changes: +CEPH500 PO
[2023-05-12 10:39] VITALS: BP 131/102
== END 2023-05-12 12:46 | disposition home or self-care (01) ==
LOC: ER 10:27
DX: R04.0 Epistaxis (principal); Z79.899 Other long term (current) drug therapy; I10 Essential (primary) hypertension; I48.91 Unspecified atrial fibrillation; J44.9 Chronic obstructive pulmonary disease, unspecified; F17.210 Nicotine dependence, cigarettes, uncomplicated
CPT/HCPCS: 30901; 99282-25; A9270

== ENCOUNTER 2023-05-24 10:01 | Emergency (ER) | payer MEDICARE ==
[~2023-05-24] VITALS: Ht 180.3 cm; Wt 70.3 kg
[2023-05-24 10:12] VITALS: BP 131/103
[2023-05-24] MEDS ORDERED: ENTRESTO 24 MG1 EACH PO (10:29)
== END 2023-05-24 11:44 | disposition home or self-care (01) ==
LOC: ER 10:01
DX: R04.0 Epistaxis (principal); I10 Essential (primary) hypertension; J44.9 Chronic obstructive pulmonary disease, unspecified; I48.91 Unspecified atrial fibrillation; F17.210 Nicotine dependence, cigarettes, uncomplicated; Z86.73 Personal history of transient ischemic attack (TIA), and cerebral infarction without residual deficits; Z79.02 Long term (current) use of antithrombotics/antiplatelets; Z79.899 Other long term (current) drug therapy
CPT/HCPCS: 99283

== ENCOUNTER 2024-07-16 10:17 | Inpatient (IN) | payer MEDICARE ==
[~2024-07-16] VITALS: Ht 180.3 cm; Wt 70.5 kg
[~2024-07-16 10:17] MED LIST changes: +ENTRESTO 24 MG1 EACH PO
[2024-07-16] MEDS ORDERED: MethylPREDNISolone Sod Succ 125 MG Vial IV ONE ×2 (10:45)
[2024-07-16] MEDS ORDERED: Magnesium Sulf 2 GM/Water 50ML 50 ML IV ONE (10:45)
[2024-07-16] MEDS ORDERED: Albuterol 2.5 MG/3 ML VIAL INH SCH (10:45)
[2024-07-16 10:56] LABS: BASOPHILS ABSOLUTE AUTO 0.04 K/mm3 (0.00-0.23); BASOPHILS PERCENT AUTO 0 % (0-2); EOSINOPHILS ABSOLUTE AUTO 0.03 K/mm3 (0.00-0.68); EOSINOPHILS PERCENT AUTO 0 % (0-6); Hematocrit 45.3 % (37.0-53.0); IMMATURE GRAN ABSOLUTE AUTO 0.02 K/mm3 (0.00-0.10); IMMATURE GRAN PERCENT AUTO 0 % (0-1); LYMPHOCYTES ABSOLUTE AUTO 0.85 K/mm3 (0.84-5.20); LYMPHOCYTES PERCENT AUTO 9 % (21-46); MONOCYTES ABSOLUTE AUTO 0.44 K/mm3 (0.16-1.47); MONOCYTES PERCENT AUTO 5 % (4-13); Mean Corpuscular HGB 29.4 pg (26.0-34.0); Mean Corpuscular HGB Conc 33.1 g/dL (31.5-36.5); Mean Corpuscular Volume 89 fL (80-100); Mean Platelet Volume 9.7 fL (9.1-12.4); NEUTROPHILS ABSOLUTE AUTO 8.43 K/mm3 (1.96-9.15); NEUTROPHILS PERCENT AUTO 86 % (41-73); Platelet Count 235 K/mm3 (150-400); RDW Coefficient Variation 16.4 % (11.7-14.2); RDW Standard Deviation 54.2 fL (35.1-46.3); White Blood Cell Count 9.81 K/mm3 (4.00-11.30)
[2024-07-16 11:13] LABS: Albumin, Blood 3.5 g/dL (3.4-5.0); Albumin/Globulin Ratio 0.8 (0.8-1.8); Bilirubin, Total 1.1 mg/dL (0.1-1.0); Bun/Creatinine Ratio 22.2 (12.0-20.0); Calcium, Blood 8.6 mg/dL (8.5-10.1); Creatinine, Blood 0.95 mg/dL (0.60-1.20); Globulin, Blood 4.5 g/dL (2.2-4.0); Potassium, Blood 3.7 mmol/L (3.5-5.5)
[2024-07-16 11:40] LABS: Base Excess Venous 0.8 mmol/L; Bicarbonate Venous 23.5 mmol/L (24.0-30.0); pH Blood Venous 7.32 (7.34-7.37)
[2024-07-16] MEDS ORDERED: NS 1,000 ML IV SCH ×2 (11:55→12:55)
[2024-07-16] MEDS ORDERED: Diltiazem HCl 5 MG / ML 5ML Vial IV ONE (11:55)
[2024-07-16 12:01] LABS: Influenza A, PCR NEGATIVE (NEGATIVE); Influenza B, PCR NEGATIVE (NEGATIVE); SARS-Cov-2 (COVID-19) PCR, MMC NEGATIVE (NEGATIVE)
[2024-07-16 12:42] LABS: Resp Syncytial Virus, PCR POSITIVE (NEGATIVE)
[2024-07-16] MEDS ORDERED: FLU VACC TS2024-25(6MOS UP)/PF 45 MCG/0.5 ML SYRINGE IM SCH (12:55)
[2024-07-16] MEDS ORDERED: dilTIAZem HCL 120 MG CAP.CD PO ONE (13:20)
[2024-07-16] MEDS ORDERED: Ipratropium/Albuterol SulF 2.5-0.5MG/3 ML Amp INH SCH (16:50)
[2024-07-16] MEDS ORDERED: Albuterol 2.5 MG/3 ML VIAL INH PRN ×2 (16:50)
[2024-07-16] MEDS ORDERED: MethylPREDNISolone Sod Succ 125 MG Vial IV SCH (18:00)
[2024-07-16 20:53] VITALS: BP 122/76
[2024-07-16] MEDS ORDERED: Lactobacil 2-S.Thermo-Bifido 1 1 Cap PO SCH (21:00)
[2024-07-16] MEDS ORDERED: Famotidine 20 MG Tab PO SCH (21:00)
[2024-07-17] VITALS (31 sets, daily range): BP systolic 85–123; BP diastolic 57–99
[2024-07-17 04:56] LABS: BASOPHILS ABSOLUTE AUTO 0.01 K/mm3 (0.00-0.23); BASOPHILS PERCENT AUTO 0 % (0-2); EOSINOPHILS PERCENT AUTO 0 % (0-6); Hematocrit 38.2 % (37.0-53.0); Hemoglobin 12.7 g/dL (13.5-17.5); Mean Corpuscular HGB 29.5 pg (26.0-34.0); Mean Corpuscular HGB Conc 33.2 g/dL (31.5-36.5); Mean Corpuscular Volume 89 fL (80-100); Mean Platelet Volume 10.7 fL (9.1-12.4); Platelet Count 216 K/mm3 (150-400); RDW Coefficient Variation 16.9 % (11.7-14.2); RDW Standard Deviation 54.2 fL (35.1-46.3); White Blood Cell Count 11.19 K/mm3 (4.00-11.30)
[2024-07-17 05:03] LABS: IMMATURE GRAN ABSOLUTE AUTO 0.05 K/mm3 (0.00-0.10); IMMATURE GRAN PERCENT AUTO 0 % (0-1); LYMPHOCYTES ABSOLUTE AUTO 0.45 K/mm3 (0.84-5.20); LYMPHOCYTES PERCENT AUTO 4 % (21-46); MONOCYTES ABSOLUTE AUTO 0.12 K/mm3 (0.16-1.47); MONOCYTES PERCENT AUTO 1 % (4-13); NEUTROPHILS ABSOLUTE AUTO 10.56 K/mm3 (1.96-9.15); NEUTROPHILS PERCENT AUTO 94 % (41-73)
[2024-07-17 05:15] LABS: Albumin, Blood 2.9 g/dL (3.4-5.0); Albumin/Globulin Ratio 0.7 (0.8-1.8); Bilirubin, Total 0.8 mg/dL (0.1-1.0); Bun/Creatinine Ratio 30.3 (12.0-20.0); Calcium, Blood 8.1 mg/dL (8.5-10.1); Creatinine, Blood 0.79 mg/dL (0.60-1.20); Magnesium, Blood 2.1 mg/dL (1.6-2.4); Potassium, Blood 3.6 mmol/L (3.5-5.5); Total Protein, Blood 6.9 g/dL (6.4-8.2)
[2024-07-17] MEDS ORDERED: ENTRESTO 24 MG1 EACH PO (06:25)
[2024-07-17] MEDS ORDERED: XARELTO20 MG PO (06:25)
[2024-07-17] MEDS ORDERED: CATAPRES0.1 MG PO (06:26)
[2024-07-17 07:02] LABS: Base Excess Venous 1.1 mmol/L; PCO2 Venous 45.7 mmHg (38-42); pH Blood Venous 7.37 (7.34-7.37)
[2024-07-17] MEDS ORDERED: dilTIAZem HCL 120 MG CAP.CD PO SCH (09:00)
--- NOTE | 2024-07-17 09:21 | NUR ---
THIS RN CALLED DR. AGEE BECAUSE THE PT HAS CRACKLES T/O HIS LUNGS AND HAS IV FLUIDS INFUSING. WHEN THIS RN SAT THE PT UP TO THE SIDE OF THE BED HE BECAME VERY DYSPNIC AND HAD TO LAY BACK DOWN IN BED. FLUIDS WERE D/C'D, BNP , AND DIURETICS BEING ORDERED. SEE NOTES FOR UPDATES.
[2024-07-17] MEDS ORDERED: Furosemide 10 MG/ML 4ML Vial IV ONE (09:25)
[2024-07-17] MEDS ORDERED: Potassium Chloride 20 MEQ TabCR PO ONE (09:30)
[2024-07-17] MEDS ORDERED: LORazepam 2 MG/ML 1ML Injection ONE (11:12)
[2024-07-17] MEDS ORDERED: LORazepam 2 MG/ML 1ML Injection IV PRN ×2 (11:15→13:05)
--- NOTE | 2024-07-17 11:39 | NUR ---
PT STOOD UP TO USE THE URINAL AND WENT INTO AFIB RVR HR 170'S. HE WAS HAVING SOME RESP DISTRESS AND RT PLACED THE PT ON THE BIPAP 12 @ 30%. HIS RESP RATE WAS 30'S-40'S, SO THIS RN CALLED DR. AGEE AND GOT IV ATIVAN ORDERED. DR. AGEE CAME TO BEDSIDE AND REASSESSED THE PT. A STAT CT-PE STUDY WAS ORDERED AND AN ECHO. DR. AGEE IS GOING TO PLACE LOPRESSOR AND WOULD LIKE ME TO GIVE IT IN 1-2 HOURS IF THE PT IS STILL IN RVR. WE ARE GIVING HIM TIME ON THE BIPAP AND LETTING THE ATIVAN KICK IN. AT THIS TIME A MALE WICKING SYSTEM WAS PLACED AND THE PT WILL BE BEDREST. SEE NOTES FOR UPDATES.
[2024-07-17] MEDS ORDERED: Metoprolol Tartrate 1 MG/ML 5 ML VIAL IV PRN (11:40)
[2024-07-17 12:34] LABS: Base Excess Venous 0.2 mmol/L; Bicarbonate Venous 23.3 mmol/L (24.0-30.0)
[2024-07-17] MEDS ORDERED: Ondansetron HCl 2 MG / ML 2ML Vial IV PRN (13:05)
--- NOTE | 2024-07-17 14:39 | NUR ---
THIS RN CALLED DR. AGEE BECAUSE THE PT IS NOW ONLY ORIENTED TO HIMSELF. HE THINKS IT IS THE YEAR 1902, DOES NOT KNOW WHERE HE IS, UNABLE TO FOLLOW COMMANDS APPRORPAITELY, AND HE CAN NOT TELL THIS INVESTIGATIVE AGENT WHO HIS DAUGHTERS ARE. HE HAS BEEN VERY ANXIOUS AND RECEIVED A TOTAL OF 2MG OF ATIVAN. ATIVAN HAS NOW BEEN D/C'D FOR ADVERSE REACTION. 1:1 SITTER OBTAINED. PT WAS TAKEN OFF THE BIPAP AND PLACED ON 1.5L NC AT ABOUT 1435. DR. AGEE WANTS A REPEAT VBG. RESP RATE STILL 30'S-40'S, DR. AGEE AWARE. THIS WAS DISCUSSED WITH PAPER COUNTER ELAYNE. SEE NOTES FOR UPDATES.
[2024-07-17 15:18] LABS: Base Excess Venous 1.7 mmol/L; Bicarbonate Venous 24.1 mmol/L (24.0-30.0); PCO2 Venous 49.2 mmHg (38-42); pH Blood Venous 7.35 (7.34-7.37)
--- NOTE | 2024-07-17 15:32 | NUR ---
DR. AGEE CAME TO BEDSIDE AND TALKED WITH THE PT'S DAUGHTER. WHILE SHE WAS DOWN ON THE UNIT THIS RN EXPRESSED CONCERNS OF POSSIBLE ASPIRATION BECAUSE OF THE DRIED WHITE SUBSTANCE ON THE PT'S FACE. THE PT WAS UNABLE TO STATE IF HE HAD ANY EMESIS D/T HIS CHANGED MENTATION. THE PT'S VBG RESULTS WERE SHARED WITH DR. AGEE. PALLIATIVE CARE CONSULTED. DR. AGEE OKAY'D A BREAK FROM THE CPAP RIGHT NOW. RESP RATE REMAINS >35. IV ABX ORDERED TO COVER POSSIBLE ASPIRATION. SEE NOTES FOR UPDATES.
[2024-07-17] MEDS ORDERED: Ampicillin Sod/Sulbactam Sod 3 GM in NS 100 ML IV SCH (16:00)
[2024-07-17] MEDS ORDERED: dexmedeTOMIDine 100 ML IV SCH (16:45)
--- NOTE | 2024-07-17 16:45 | NUR ---
AT 1610 A RAMONE VEST RESTRAINT WAS ORDERED. THE PT CONTINUES TO BE ONLY ORIENTED TO SELF AND REMAINS ANXIOUS AND IS BECOMING VERRY AGGITATED. THE PT IS PULLING AT LINES, RIPPED HIS GOWN IN HALF, RIPPED OFF HIS TELE BOX, AND HAS TRIED RIPPING OUT HIS IV. TWO SITTERS IN THE ROOM AT THIS TIME. THE PT DID PUSH STAFF AND THE SITTER. BOTH DAUGHTERS ARON AND ABRIL ARE IN THE ROOM. DR. AGEE AND PALLIATIVE CARE IN THE ROOM TALKING WITH THE DAUGHTERS ABOUT PLAN OF CARE. ABRIL WOULD LIKE THE PT TO BE FULL CODE. RISK OF END STAGE COPD WAS DISCUSSED FROM DR. AGEE. PLAN AT THIS TIME TO TRANSFER TO ICU. PRECEDEX GTT WAS ORDERED. SEE NOTES FOR UPDATES.
[2024-07-17] MEDS ORDERED: Rivaroxaban 10 MG Tab PO SCH (17:00)
--- NOTE | 2024-07-17 17:20 | NUR ---
PT TRANSFERED TO ICU 09. BEDSIDE REPORT GIVEN TO THAO DIAZ. DR. SIMONS IN THE ROOM. SULLY VIGIL IN THE ROOM.
--- NOTE | 2024-07-17 17:30 | NUR ---
TRANSFER OF CARE THIS NURSE ASSUMED CARE AT APPROXIMATELY 1700. PT ABLE TO TELL CORRECT MONTH, DAY, AND YEAR BUT IS UNCERTAIN OF SITUATION OR LOCATION. PT ABLE TO NAME BOTH DAUGHTERS AND IDENTIFY SELF. PT DENIES ANY PAIN AT THIS TIME. PT PLACED ON A PRECEDEX GTT FOR PULLING AT LINES/AGGITATION. PT AT THIS TIME IS COOPERATIVE, SEE PREVIOUS NURSE NOTES REGARDING AGGITATION. THIS NURSED ASKED THE PT IF HE IS FEELING AGGITATED AND PT STATED HE IS. SITTER PRESENT IN THE ROOM. WILL CONTINUE WITH THE PLAN OF CARE.
[2024-07-17 19:45] LABS: Base Excess Venous -0.4 mmol/L; Bicarbonate Venous 24.3 mmol/L (24.0-30.0); PCO2 Venous 36.3 mmHg (38-42); pH Blood Venous 7.43 (7.34-7.37)
[2024-07-18] VITALS (59 sets, daily range): BP systolic 88–171; BP diastolic 55–109
[2024-07-18] MEDS ORDERED: Haloperidol Lactate Inj. 5 MG/ML Injection IM PRN (00:40)
[2024-07-18 03:29] LABS: BASOPHILS ABSOLUTE AUTO 0.02 K/mm3 (0.00-0.23); BASOPHILS PERCENT AUTO 0 % (0-2); EOSINOPHILS PERCENT AUTO 0 % (0-6); Hemoglobin 13.7 g/dL (13.5-17.5); IMMATURE GRAN ABSOLUTE AUTO 0.11 K/mm3 (0.00-0.10); IMMATURE GRAN PERCENT AUTO 1 % (0-1); LYMPHOCYTES ABSOLUTE AUTO 0.43 K/mm3 (0.84-5.20); LYMPHOCYTES PERCENT AUTO 2 % (21-46); MONOCYTES ABSOLUTE AUTO 0.34 K/mm3 (0.16-1.47); MONOCYTES PERCENT AUTO 2 % (4-13); Mean Corpuscular HGB 29.1 pg (26.0-34.0); Mean Corpuscular HGB Conc 33.4 g/dL (31.5-36.5); Mean Corpuscular Volume 87 fL (80-100); Mean Platelet Volume 9.8 fL (9.1-12.4); NEUTROPHILS ABSOLUTE AUTO 16.72 K/mm3 (1.96-9.15); NEUTROPHILS PERCENT AUTO 95 % (41-73); Platelet Count 204 K/mm3 (150-400); RDW Standard Deviation 55.2 fL (35.1-46.3); White Blood Cell Count 17.62 K/mm3 (4.00-11.30)
[2024-07-18 04:27] LABS: Albumin, Blood 3.3 g/dL (3.4-5.0); Albumin/Globulin Ratio 0.8 (0.8-1.8); Bilirubin, Total 0.4 mg/dL (0.1-1.0); Bun/Creatinine Ratio 35.8 (12.0-20.0); Calcium, Blood 8.9 mg/dL (8.5-10.1); Creatinine, Blood 0.76 mg/dL (0.60-1.20); Globulin, Blood 4.2 g/dL (2.2-4.0); Potassium, Blood 3.3 mmol/L (3.5-5.5); Total Protein, Blood 7.5 g/dL (6.4-8.2)
[2024-07-18] MEDS ORDERED: Potassium Chl 20MEQ/Water100ML 100 ML IV SCH (05:25)
[2024-07-18] MEDS ORDERED: Potassium Chloride 40 MEQ in NS 250 ML IV ONE (06:15)
--- NOTE | 2024-07-18 06:49 | NUR ---
SHIFT ASSESSMENT PT TOLERATED SHIFT WITH FEW CHANGES. AT 0000 PT WOKE UP AND ATTEMPTED TO GET OUT OF BED. PT STATES THAT HE HAS TO GO TO WORK AND HAS TO GET HIS CLOTHES ON. THIS NURSE ALONG WITH SITTER ATTEMPTED TO CALM PT AND REDIRECT BACK FROM SITTING AT BEDSIDE TO LAYING IN BED. PT BECAME AGITATED AND YELLED AT THIS NURSE TO GET MY HANDS OFF OF HIM. OTHER NURSES ON THE UNIT CAME TO ASSIST. PTS PRECEDEX WAS INCREASED AND HALDOL WAS ORDERED BY PHYSICIAN. PT BEGAN TO CALM DOWN WITH INCREASE IN PRECEDEX AND DID NOT REQUIRE HALDOL. PT LAID BACK IN BED AND RESTING AFTER 40 MINUTES OF EVENT. PT HAS SINCE WOKEN AT TIMES SLIGHTLY CONFUSED BUT HAS BEEN REDIRECTABLE TO THE SITTER. WILL CONTINUE TO MONITOR UNTIL REPORT PASSED TO DAY SHIFT TEAM.
--- NOTE | 2024-07-18 12:00 | NUR ---
UPDATE ASSUMED CARE OF PT @ 0700. PT INITIALLY ON BIPAP AND LIGHTLY SEDATED WITH PRECEDEX DUE TO PULLING OFF BIPAP. PRECEDEX OFF-SEE FLOWSHEET- AND BIPAP OFF. NOW ON 2LPM VIA NC c SATS >90%, NO S/S OF RESP DISTRESS. PT ALERT TO PERSON, PLACE, AND YEAR. FOLLOWING COMMANDS, CANO, REMAINS WEAK. HAVE NOT HAD PT OUT OF BED YET. DID NOT GIVE PT BREAKFAST, AWAITING SWALLOW EVAL. MALE PUREWICK IN PLACE. NO BM. PT NOW MEDICAL FLOOR STATUS. CALL LIGHT IN REACH.
--- NOTE | 2024-07-18 18:16 | NUR ---
SHIFT SUMMARY PT A&OX4, PLEASANT AND COOPERATIVE WITH CARE. UP TO BEDSIDE COMMODE THIS AFTERNOON WITH SBA AND GAIT BELT. PT BECAME QUITE TACHYPNEIC AND TACHYCARDIC BUT RECOVERED AFTER A BRIEF PERIOD WITH THE BIPAP. MEDICATED X 1 WITH LOPRESSOR DUE TO TACHYCARDIA. CURRENTLY ON 2LPM O2 VIA NC, SATS >90%. TOLERATING PO INTAKE WELL. USING COMMODE, SMALL BM AND UNMEASURED VOID TODAY.
--- NOTE | 2024-07-18 19:45 | NUR ---
ASSUMPTION OF CARE REPORT RECEIVED FROM DAY SHIFT NURSE. PT APPEARS TO HAVE HAD GOOD DAY AND CHANGE FROM PROVISIONING ANALYST. PT IS CURRENTLY LAYING IN BED IN ROOM COMFORTABLY, WATCHING TV. PT HAS NO COMPLAINTS, CONCERNS, OR REQUESTS AT THIS TIME. WILL CONTINUE TO MONITOR AND ASSESS FOR DURATION OF SHIFT.
[2024-07-19] VITALS (35 sets, daily range): BP systolic 95–155; BP diastolic 70–111
[2024-07-19 03:20] LABS: BASOPHILS ABSOLUTE AUTO 0.02 K/mm3 (0.00-0.23); BASOPHILS PERCENT AUTO 0 % (0-2); EOSINOPHILS PERCENT AUTO 0 % (0-6); Hematocrit 37.6 % (37.0-53.0); Hemoglobin 12.5 g/dL (13.5-17.5); IMMATURE GRAN ABSOLUTE AUTO 0.14 K/mm3 (0.00-0.10); IMMATURE GRAN PERCENT AUTO 1 % (0-1); LYMPHOCYTES ABSOLUTE AUTO 0.55 K/mm3 (0.84-5.20); LYMPHOCYTES PERCENT AUTO 3 % (21-46); MONOCYTES PERCENT AUTO 2 % (4-13); Mean Corpuscular HGB 29.2 pg (26.0-34.0); Mean Corpuscular HGB Conc 33.2 g/dL (31.5-36.5); Mean Corpuscular Volume 88 fL (80-100); Mean Platelet Volume 10.1 fL (9.1-12.4); NEUTROPHILS ABSOLUTE AUTO 18.52 K/mm3 (1.96-9.15); NEUTROPHILS PERCENT AUTO 94 % (41-73); Platelet Count 215 K/mm3 (150-400); RDW Coefficient Variation 17.2 % (11.7-14.2); RDW Standard Deviation 55.9 fL (35.1-46.3); Red Blood Cell Count 4.28 M/mm3 (4.30-5.90); White Blood Cell Count 19.63 K/mm3 (4.00-11.30)
[2024-07-19 03:40] LABS: Albumin/Globulin Ratio 0.8 (0.8-1.8); Bilirubin, Total 0.4 mg/dL (0.1-1.0); Bun/Creatinine Ratio 38.4 (12.0-20.0); Calcium, Blood 8.2 mg/dL (8.5-10.1); Creatinine, Blood 0.86 mg/dL (0.60-1.20); Globulin, Blood 3.8 g/dL (2.2-4.0); Total Protein, Blood 6.8 g/dL (6.4-8.2)
--- NOTE | 2024-07-19 06:38 | NUR ---
SHIFT SUMMARY PT HAS TOLERATED SHIFT WELL. PT WAS ABLE TO STAY OFF OF BIPAP FOR MAJORITY OF NIGHT AND REMAIN ALERT AND ORIENTED. PT WAS ABLE TO AMBULATE AFTER SETUP TO BEDSIDE TOILET TWICE OVERNIGHT. PT DID REQUIRE LOPRESSOR THREE DIFFERENT TIMES THROUGHOUT EVENING DUE TO INCREASE IN PULSE AND BP USUALLY PRECEDING THE NEED TO USE RESTROOM. WILL CONTINUE TO MONITOR UNTIL REPORT PASSED TO DAY SHIFT TEAM.
[2024-07-19] MEDS ORDERED: Metoprolol Succinate 50 MG TABCR PO SCH (09:00)
[2024-07-19] MEDS ORDERED: Lisinopril 5 MG Tab PO SCH (09:00)
[2024-07-19] MEDS ORDERED: Empagliflozin 10 MG TAB PO SCH (09:00)
--- NOTE | 2024-07-19 11:01 | NUR ---
THIS RN ASSUMED CARE OF PT AT 0700. PT IS ALERT AND ORIENTED X4, PT CALLS APPROPRIATELY AND IS VERY PLEASANT. PT HEART RATE 120-160s, IN A-FIB, IS AWARE AND SAW PT AT BEDSIDE, PROVIDER WANTED TO GIVE 5MG IV LOPRESSOR AND STARTED PT ON 50 XL METOPROLOL. PT BLOOD PRESSURE STABLE AT 137/88 AND PT DENIES CHEST PAIN. PT IS ON 2L NC SATTING >90%, PT DENIES SHORTNESS OF BREATH, SOUNDS CLEAR/DIMINSIHED. PT WAS ABLE TO WALK TO TOILET WITH NO SUPPORT. PT GETTING IV ANTIOBIOTICS. NO OTHER INTERVENTIONS AT THIS TIME. PLAN OF CARE CONTINUED. PT HAS BEEN CHANGED TO PCU STATUS.
[2024-07-19] MEDS ORDERED: Metoprolol Tartrate 1 MG/ML 5 ML VIAL IV STA (11:37)
[2024-07-19] MEDS ORDERED: Metoprolol Tartrate 50 MG Tab PO STA (11:38)
--- NOTE | 2024-07-19 15:27 | NUR ---
PT WILL BE TRANSFERING TO PCU ROOM 08. PT HEART RATE STILL HIGH 110-130s, HAS BEEN NOTIFIED, PROVIDER SAID TO START PT ON DILTIAZEM DRIP, STARTED AT 5MG/HR. NO OTHER INTERVENTIONS AT THIS TIME. PLAN OF CARE CONTINUED.
--- NOTE | 2024-07-19 15:39 | NUR ---
ARRIVAL NOTE: PATIENT ARRIVED TO UNIT VIA WHEELCHAIR. ON 1 LITER VIA NASAL CANNULA. DILT DRIP WAS REPROGRAMMED AND TITRATED UP TO 10 MD ROBI WAS TOLD AND CHARTED IN THE EMAR. FAMILY AT BEDSIDE. VITAL SIGNS TAKEN PATIENT STABLE.
[2024-07-19] MEDS ORDERED: MethylPREDNISolone Sod Succ 125 MG Vial IV SCH (16:00)
[2024-07-19] MEDS ORDERED: NS 250 ML IV PRN (16:25)
--- NOTE | 2024-07-19 17:34 | NUR ---
SHIFT SUMMARY: PATIENT IS ALERT AND ORIENTED X4 AND COOPERATIVE WITH HIS CARE HERE. PATIENT IS SATTING >92% ON 1-2 LITERS VIA NASAL CANNULA. PATIENT IS ON A DILTIAZEM DRIP AT 10 WITH HEART RATE BOUCNING BETWEEN 110-130 OCCASIONALY. FAMILY AT BEDSIDE. PATIENT HAS SCD'S PLACED AND IS A STAND BY ASSIST TO MANAGE LINES/CHORDS. PATIENT DENIED ANY CHEST PAIN/PRESSURE. DENIED FEELING HIS HEART BEATING FAST OR ANY SYMPTOMS OF ANYTHING. PATIENT HAS CALL LIGHT WITHIN REACH, BED IN LOWEST POSITION AND NOT SATING HE IS NEEDEDING ANYTHING.
--- NOTE | 2024-07-19 19:28 | NUR ---
[place] of Care: Report received from day shift nurse. Patient lying in bed alert/orientated. On 2.5 L NC. No complaints of pain or SOB. Appears comfortable. Continue Care.
[2024-07-20] VITALS (7 sets, daily range): BP systolic 114–141; BP diastolic 71–102
[2024-07-20 03:48] LABS: BASOPHILS ABSOLUTE AUTO 0.01 K/mm3 (0.00-0.23); BASOPHILS PERCENT AUTO 0 % (0-2); EOSINOPHILS ABSOLUTE AUTO 0.01 K/mm3 (0.00-0.68); EOSINOPHILS PERCENT AUTO 0 % (0-6); Hematocrit 35.2 % (37.0-53.0); Hemoglobin 11.9 g/dL (13.5-17.5); IMMATURE GRAN ABSOLUTE AUTO 0.09 K/mm3 (0.00-0.10); IMMATURE GRAN PERCENT AUTO 1 % (0-1); LYMPHOCYTES ABSOLUTE AUTO 0.58 K/mm3 (0.84-5.20); LYMPHOCYTES PERCENT AUTO 5 % (21-46); MONOCYTES ABSOLUTE AUTO 0.31 K/mm3 (0.16-1.47); MONOCYTES PERCENT AUTO 3 % (4-13); Mean Corpuscular HGB 29.8 pg (26.0-34.0); Mean Corpuscular HGB Conc 33.8 g/dL (31.5-36.5); Mean Corpuscular Volume 88 fL (80-100); NEUTROPHILS ABSOLUTE AUTO 11.65 K/mm3 (1.96-9.15); NEUTROPHILS PERCENT AUTO 92 % (41-73); Platelet Count 179 K/mm3 (150-400); RDW Coefficient Variation 16.9 % (11.7-14.2); RDW Standard Deviation 55.1 fL (35.1-46.3); White Blood Cell Count 12.65 K/mm3 (4.00-11.30)
[2024-07-20 04:05] LABS: Creatinine, Blood 0.82 mg/dL (0.60-1.20); Potassium, Blood 3.8 mmol/L (3.5-5.5)
--- NOTE | 2024-07-20 05:35 | NUR ---
EOS: Patient on bipap part of night. Keept asking when he could take the mask off. Restless, not sleeping. On NC O2 3 liters now. Remains on the Cardizem drip of 5 mg/hr. Heart rate jumps up to the 130's with activity. Patient asking nurse "what is the plan today?" Explained to him his medications/heart rate/pneumonia. Now asking to put his street clothes on. States he wants to go home today. Explained he probably would be staying in the hospital another night. Patient was not happy to hear this. Stated "I need to go home today! I have things I have to do!" Again explained he would have to speak to the doctor this morning. Continue Care.
[2024-07-20] MEDS ORDERED: Metoprolol Succinate 50 MG TABCR PO ONE (12:00)
--- NOTE | 2024-07-20 16:23 | NUR ---
Shift Summary Pt alert, oriented x4; expressing the desire to discharge this am or go home for a couple hour and come home, pt educated on hospital policy, he would be able to leave ama, but would need to go to the ER to be readmitted if he needed that, patient unable to understand and was repeated several times. Pt finally agreed to stay after family/friend told him to. Pt denies pain, chest pain/pressure, nausea, dizziness and numb/tinglint. Tele afib 80-110's, at rest, 130-150s with activity. Pt given additional dose of metoprolol succ and titrated off dilt gtt this afternoon. Spo2 >90% on 3l o2 via nc, titrated down to ra this afternoon, pt report "mild" sob at times. Abd soft, nontender, +bt t/o. No edema noted. Other vss. No other acute changes noted. Will continue to monitor.
--- NOTE | 2024-07-20 19:19 | NUR ---
[place] of care: Report received from day RN. Patient lying in bed. On room air. Appears comfortable. No complaints of chest pain. Continue care.
[2024-07-20] MEDS ORDERED: MethylPREDNISolone Sod Succ 125 MG Vial IV SCH (21:00)
[2024-07-21 03:19] VITALS: BP 143/100
[2024-07-21 03:54] LABS: Hemoglobin 12.1 g/dL (13.5-17.5); Mean Corpuscular HGB 29.4 pg (26.0-34.0); Mean Corpuscular HGB Conc 33.6 g/dL (31.5-36.5); Mean Corpuscular Volume 88 fL (80-100); Mean Platelet Volume 10.5 fL (9.1-12.4); Platelet Count 185 K/mm3 (150-400); RDW Coefficient Variation 16.7 % (11.7-14.2); RDW Standard Deviation 53.6 fL (35.1-46.3); Red Blood Cell Count 4.11 M/mm3 (4.30-5.90); White Blood Cell Count 8.17 K/mm3 (4.00-11.30)
[2024-07-21 04:20] LABS: Bun/Creatinine Ratio 34.8 (12.0-20.0); Creatinine, Blood 0.83 mg/dL (0.60-1.20); Potassium, Blood 3.7 mmol/L (3.5-5.5)
[2024-07-21 04:47] LABS: BAND PERCENT MAN 5 % (0-8); BASOPHILS PERCENT MAN 0 % (0-2); EOSINOPHILS ABSOLUTE MAN 0.08 K/mm3 (0.00-0.68); EOSINOPHILS PERCENT MAN 1 % (0-6); LYMPHOCYTES % ATYPICAL MANUAL 1 % (0-0); LYMPHOCYTES ABSOLUTE MAN 0.49 K/mm3 (0.84-5.20); LYMPHOCYTES PERCENT MAN 5 % (21-46); MONOCYTES ABSOLUTE MAN 0.16 K/mm3 (0.16-1.47); MONOCYTES PERCENT MAN 2 % (4-13); MYELOCYTE ABSOLUTE MAN 0.08 K/mm3 (0.00-0.00); MYELOCYTE PERCENT MAN 1 % (0-0); NEUTROPHILS ABSOLUTE MAN 7.35 K/mm3 (1.96-9.15); SEG NEUTROPHILS PERCENT MAN 85 % (41-73); TOTAL CELLS COUNTED 100
--- NOTE | 2024-07-21 05:50 | NUR ---
EOS Note: Patient requiring night time O2 while asleep. O2 saturations dipped down inth low 80's when sound asleep. When patient is awake heart rate goes up to 140-160's with movement. One dose of IV metoprolol 5 mg given tonight. Continue Care
[2024-07-21 08:23] VITALS: BP 138/85
[2024-07-21] MEDS ORDERED: Metoprolol Succinate 50 MG TABCR PO SCH (09:00)
[2024-07-21] MEDS ORDERED: Metoprolol Succinate 25 MG TABCR PO ONE (09:00)
[2024-07-21] MEDS ORDERED: Ampicillin Sod/Sulbactam Sod 3 GM ONE (10:44)
[2024-07-21 12:39] VITALS: BP 142/98
[2024-07-21] MEDS ORDERED: Spironolactone 25 MG Tab PO SCH (14:30)
[2024-07-21 15:07] VITALS: BP 136/102
--- NOTE | 2024-07-21 17:05 | NUR ---
Shift Summary Pt alert, orientedx4; calm and cooperative with care. Pt up with sba in room. Call appropriately. Pt denies pain, chest pain/pressure, nausea, dizziness and numb/tingling. Pt SOB with activity, spo2 >90% on ra, breathing even and unlabored, nonproductive cough noted this afternoon. Tele afib 90-110's, while at rest, 130-180's with activity; MD aware. Abd soft, nontender, +bt; bm this am. No edema noted. No other acute changes noted. Will continue to monitor.
[2024-07-21 20:03] VITALS: BP 141/108
[2024-07-21] MEDS ORDERED: Metoprolol Succinate 50 MG TABCR PO ONE (20:30)
[2024-07-22 04:31] VITALS: BP 131/104
--- NOTE | 2024-07-22 05:24 | NUR ---
SHIFT SUMMARY PT IS A&O X4, ABLE TO MAKE NEEDS KNOWN, OBEYS COMMAND, MOVING ALL EXTREMITIES EQUALLY, AMBULATINED SBA TO BRP. SPO2 GREATER THAN 90% ON RA, NO SIGNS OF RESPIRATORY DISTRESS OBSERVED. CONTINUOUS TELE MONITORING, AFIB 90-100 S AND INCREASES TO 130-160 S WITH ACTIVITY DOES NOT SUSTAIN 160 S WILL MAINTAIN 130 S FOR 10-30 MINUTES, BP STABLE WITH MAP GREATER THAN 65, PT DENIES CHEST P/P, PULSES PRESENT T/O. BOWEL TONES PRESENT IN ALL 4Q, PT DENIES FEELINGS OF CONSTIPATION OR FEELINGS OF NAUSEA. PT VOIDING IND IN BRP, URINE YELLOW IN COLOR. SLEEP STUDY BEING DONE BY RT THIS SHIFT, NO 0000 VITALS TAKEN. BED LOWEST POSITION, CALL LIGHT IN REACH, AWAITING TO GIVE REPORT TO ONCOMING RN.
[2024-07-22 07:29] LABS: BASOPHILS ABSOLUTE AUTO 0.01 K/mm3 (0.00-0.23); BASOPHILS PERCENT AUTO 0 % (0-2); EOSINOPHILS PERCENT AUTO 0 % (0-6); Hematocrit 38.6 % (37.0-53.0); IMMATURE GRAN ABSOLUTE AUTO 0.14 K/mm3 (0.00-0.10); IMMATURE GRAN PERCENT AUTO 1 % (0-1); LYMPHOCYTES ABSOLUTE AUTO 1.66 K/mm3 (0.84-5.20); LYMPHOCYTES PERCENT AUTO 16 % (21-46); MONOCYTES ABSOLUTE AUTO 0.82 K/mm3 (0.16-1.47); MONOCYTES PERCENT AUTO 8 % (4-13); Mean Corpuscular HGB 29.2 pg (26.0-34.0); Mean Corpuscular HGB Conc 33.7 g/dL (31.5-36.5); Mean Corpuscular Volume 87 fL (80-100); Mean Platelet Volume 10.4 fL (9.1-12.4); NEUTROPHILS PERCENT AUTO 75 % (41-73); Platelet Count 196 K/mm3 (150-400); RDW Coefficient Variation 15.8 % (11.7-14.2); RDW Standard Deviation 49.9 fL (35.1-46.3); Red Blood Cell Count 4.45 M/mm3 (4.30-5.90); White Blood Cell Count 10.53 K/mm3 (4.00-11.30)
[2024-07-22 07:56] LABS: Bun/Creatinine Ratio 28.1 (12.0-20.0); Calcium, Blood 8.1 mg/dL (8.5-10.1); Creatinine, Blood 0.82 mg/dL (0.60-1.20); Potassium, Blood 3.5 mmol/L (3.5-5.5)
[2024-07-22 08:33] VITALS: BP 115/76
--- NOTE | 2024-07-22 08:59 | NUR ---
AM NOTE Pt alert, oriented x4; calm and cooperative with care. Pt expressing desire to go home today. Pt denies pain, chest pain/pressure, sob, nausea, dizziness and numb/tingling. Up with sba in room. Spo2 >90% on ra, breathing even and unlabored, nonproductive cough noted. Tele afib 90-110's at rest, 120-130's with activity this am. Abd soft, nontender, +bt t/o. No edema noted. No other acute changes noted. Will continue to monitor.
[2024-07-22] MEDS ORDERED: PredniSONE 20 MG Tab PO SCH (09:00)
[2024-07-22] MEDS ORDERED: Metoprolol Succinate 50 MG TABCR PO SCH (09:00)
[2024-07-22] MEDS ORDERED: JARDIANCE10 MG PO (10:23)
[2024-07-22] MEDS ORDERED: METO50ER PO (10:27)
[2024-07-22] MEDS ORDERED: DELTASONE20 MG PO (10:29)
[2024-07-22] MEDS ORDERED: SPIR25 PO (10:30)
[2024-07-22 12:03] VITALS: BP 147/112
--- NOTE | 2024-07-22 12:30 | NUR ---
DISCHARGE SUMMARY NO ACUTE CHAGNES NOTED. EDUCATED PT AND DAUGHTER ARON AT BEDSIDE ON DISCHARGE INSTRUCTIONS, FOLLOW UP APPOINTMENTS, PRESCRIPTIONS, AND HEART FAILURE. PRESCRIPTIONS FAXED TO [facility], CONFIRMED WITH [facility] THEY HAVE RECIEVED AND ARE WORKING ON THEM. VSS. NO OTHER ACUTE CHANGES. PT LEFT VIA WHEELCHAIR AT 1223.
== END 2024-07-22 12:23 | disposition home health service (06) | DRG 189 ==
LOC: ER 10:17 → PCU 12:51 → ICUE 12:51 → ERHOLD 12:51 → PCU 20:25 → ICUE 07-17 16:59 → PCU 07-19 15:26
PROVIDERS: Emergency Medicine; Family Medicine; Internal Medicine Critical Care Medicine; Student in an Organized Health Care Education/Training Program; ADMIT Family Medicine
PROC: 5A09557 Assistance with Respiratory Ventilation, Greater than 96 Consecutive Hours, Continuous Positive Airway Pressure (ICD-10-PCS; principal; 2024-07-16)
DX: J96.21 Acute and chronic respiratory failure with hypoxia (principal); I50.23 Acute on chronic systolic (congestive) heart failure; J44.1 Chronic obstructive pulmonary disease with (acute) exacerbation; I48.20 Chronic atrial fibrillation, unspecified; J96.22 Acute and chronic respiratory failure with hypercapnia; I11.0 Hypertensive heart disease with heart failure; B97.4 Respiratory syncytial virus as the cause of diseases classified elsewhere; Z91.199 Patient's noncompliance with other medical treatment and regimen due to unspecified reason; Z63.4 Disappearance and death of family member; F17.210 Nicotine dependence, cigarettes, uncomplicated; I73.9 Peripheral vascular disease, unspecified; G60.9 Hereditary and idiopathic neuropathy, unspecified; Z79.01 Long term (current) use of anticoagulants; Z79.899 Other long term (current) drug therapy; R45.1 Restlessness and agitation; Z99.81 Dependence on supplemental oxygen; Z86.73 Personal history of transient ischemic attack (TIA), and cerebral infarction without residual deficits; Z98.890 Other specified postprocedural states; Z86.19 Personal history of other infectious and parasitic diseases
CPT/HCPCS: 0241U; 36415; 71045; 71260; 80048; 80053; 82803; 83735; 83880; 84145; 84484; 85025; 93005; 93010; 94640; 94644; 94660; 94664; 94760; 94762; 96361; 96365; 96375; 99285-25; A9270; C8929; J0295; J1940; J2060; J2919; J3475; J3480; J7030; J7050; J7512; Q9957; Q9967